=== PATIENT | female | born 1965 ===

== ENCOUNTER 2016-12-20 16:27 | Inpatient (IN) ==
[2016-12-20] MEDS ORDERED: ONDANSETRON 4 MG/2 ML VIAL IV PRN ×2 (16:41→17:56)
[2016-12-20] MEDS ORDERED: ENOXAPARIN 100 MG/ML SYRINGE SUBCUT STA (16:41)
[2016-12-20] MEDS ORDERED: ASPIRIN 325 MG TABLET PO STA (16:41)
[2016-12-20] MEDS ORDERED: NITROGLYCERIN 2% OINT 1 INCH/GM PACK TOP STA (16:41)
[2016-12-20] MEDS ORDERED: NITROGLYCERIN SL 0.4 MG TABLET SL PRN (16:41)
[2016-12-20] MEDS ORDERED: MORPHINE 2 MG/1 ML SYRINGE IV PRN (16:41)
--- NOTE | 2016-12-20 16:44 | EKG Report ---
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
[2016-12-20 16:52] LABS: Basophils % 0.4 % (0.0-0.8); Eosinophils # 0.2 10*3/uL (0.0-0.87); Eosinophils % 1.9 % (0.00-10.9); Hematocrit 35.4 VOL% (35.7-47.0); Hemoglobin 11.8 GM/DL (12.0-16.0); Immature Granulocytes % 0.4 %; Immature Granulocytes Absolute 0.04 #; Lymphocytes # 2.4 10*3/uL (1.4-4.0); Lymphocytes % 22.9 % (21.3-54.2); Mean Corpuscular HGB Conc 33.3 GM/DL (32-36); Mean Corpuscular Hemoglobin 29 PG (27-34); Mean Corpuscular Volume 85.5 FL (87-102); Mean Platelet Volume 10.3 FL (9.6-12.0); Monocytes # 0.5 10*3/uL (0.11-0.8); Monocytes % 4.6 % (1.7-12.7); Neutrophils # 7.2 10*3/uL (1.4-7.4); Neutrophils % 69.8 % (38.7-73.9); Platelet Count 203 T/CUMM (130-400); Red Blood Count 4.14 MC/CUMM (3.8-5.5); Red Cell Distribution Width 13.6 % (9.3-17.3); White Blood Count 10.3 T/CUMM (4-12)
[2016-12-20 17:04] LABS: Partial Thromboplastin Time 27.2 SECS (0-40)
--- NOTE | 2016-12-20 17:07 | Emergency Department Note ---
Lincoln Sharma Emily, am scribing for, and in the presence of, Obie Osuna MD 16:46. Thao Sharma James D, MD, personally performed the services described in this documentation, ascribed by Ines Stark in my presence, and it is both accurate and complete 706 . Arrival - Arrival Chief Complaint: Chest Pain Stated Complaint: chest pain ED Nursing Triage Note: Brought in per EMS from home with c/o left sided chest pain- underneath left breast onset 1400pm. Describes as tightness. +shortness of breath. +nausea. +dizziness. +headache. Mode of Arrival: Stretcher Limitations: No Limitations Source: Patient, RN Notes Reviewed Time Seen by Provider: 12/20/16 16:38 - History of Present Illness HPI Narrative: Pt is a 51 y/o female who came to ED by EMS for further evaluation of chest pain that started today at 2pm when peeling potatoes sitting on the couch. Pt describes the chest pain as tightness and throbbing, which is non radiating under left breast, along with experiencing nausea and chills. Pt has been having MCKAY recently as well but denies arm pain or rash. PMHx of CHF, IDDM, HTN. Pt notes being compliant with daily medications. She was hospitalized back in June 2016, for surgery with abscess/cellulitis on left lower extremity and was also dx then with CHF. Onset (ago): hour(s) Consistency: constant Severity: moderate Severity scale (1-10): 5 Quality: aching (tightness and throbbing) Date of Last Menstrual Period: hyst Allergies/Adverse Reactions: Allergies Allergy/AdvReac Type Severity Reaction Status Date / Time Hyoscyamine AdvReac Intermediate RASH Verified 12/20/16 16:32 Home Medications: Home Medications Medication Instructions Recorded Confirmed Type Aspirin Chew Tab 81 mg PO QAM 09/21/14 12/20/16 History Furosemide Tab [Lasix Tab] 20 mg PO QAM 07/22/15 12/20/16 History Glimepiride 4 mg PO BID 07/22/15 12/20/16 History Insulin Aspart [NovoLOG] 10 unit SUBCUT BID 07/22/15 12/20/16 History Insulin Detemir [Levemir] 15 unit SUBCUT QPM 07/22/15 12/20/16 History Insulin Detemir [Levemir] 55 unit SUBCUT QAM 07/22/15 12/20/16 History Lisinopril 20 mg PO QAM 07/22/15 12/20/16 History Nitroglycerin Sl Tab [Nitrostat] 0.4 mg SL Q5M PRN 07/22/15 12/20/16 History Pravastatin [Pravachol] 40 mg PO BEDTIME 07/22/15 12/20/16 History Esomeprazole Magnesium 40 mg PO QAM 05/31/16 12/20/16 History [Esomeprazole] Albuterol Inhaler [Proventil 2 puff INH Q4H PRN 06/02/16 12/20/16 History Inhaler] Gabapentin [Gabapentin] 600 mg PO TID 12/20/16 12/20/16 History Tramadol HCl [Tramadol Tab] 50 mg PO Q6H PRN 12/20/16 12/20/16 History Review of System - Review of System 12 point system: reviewed and no additional remarkable complaints except as stated - Review of System Constitutional: Present: chills. Absent: fever Respiratory: Absent: cough, respiratory distress Cardiovascular: Present: chest pain (under left breast, non radiating), dyspnea on exertion. Absent: syncope Gastrointestinal: Present: nausea. Absent: abdominal pain, vomiting Musculoskeletal: Absent: arm pain, neck pain Skin: Absent: rash Neurological: Absent: headache Medical,Surgical,& Family Hx - Medical History Cardio: History of: CHF, Hypertension No history of: Aneurysm, Cardiac Dysrhythmia, Cerebrovascular Disease, Congenital Heart Disease, CAD, MS, Pacemaker, PVD, Valvular Heart Disease, Cardiovascular Problems Neurology: History of: Peripheral Neuropathy No history of: Seizures HEENT: History of: Eye Problem (cataract) No history of: Ear Problem Endocrine: History of: Diabetes Mellitus (IDDM), Dyslipidemia Respiratory: History of: Respiratory Problems (sob upon excertion) Renal: History of: Renal Problems Genitourinary: History of: Bladder Problem, Kidney Stones Gastrointestinal: History of: GERD, Polyps Musculoskeletal: History of: Back/Neck Problems No history of: Amputation Hematology: History of: Anemia No history of: Blood Transfusion Reaction Reproductive: No history of: Breast Cancer Other: History of: Anaphylaxis No history of: Anesthesia Reactions - Surgical History Cardiac Surgeries: Sugical HX of: Cardiac Catheterization (heart caths- negative 2010,2011,2016) Neurologic Surgeries: Patient denies: Neurologic Surgery HEENT Surgeries: Surgical HX of: Eye Surgery Patient denies: Tonsilectomy & Adenoidectomy Abdominal Surgeries: Surgical HX of: Abdominal Surgery, Appendectomy, Cholecystectomy, Colonoscopy, EGD, Hernia Repair Reproductive Surgeries: Surgical HX of;: Section (X1), Hysterectomy Orthopedic Surgeries: Patient denies;: Orthopedic Surgery, Total Hip Replacement, Total Knee Replacement - Family History Family History: Reports;: Family Diabetes (parents), Family Heart Disease ( parents, sister, brother), Family Hypertension (parents,brother, sister), Family Stroke (sister, mom) Denies;: Family Anesthesia Reaction - Social History Smoking Status: Former smoker Frequency of Alcohol Use: None Type of Drug Use: None Marital Status: Single Lives With:: Alone Functional capacity: independent ambulation Exam Vital Signs: Vital Signs Temperature 97.4 F L 12/20/16 16:30 Pulse Rate 69 12/20/16 19:00 Respiratory Rate 17 12/20/16 19:00 Blood Pressure 120/67 12/20/16 19:00 O2 Sat by Pulse Oximetry 98 12/20/16 19:00 GENERAL: This is a well-nourished well-developed obese female in no apparent distress. VITAL SIGNS: Reviewed HEENT: Head is atraumatic and normocephalic. Pupils are equal round react to light. Extraocular movements are intact. Oropharynx is benign with moist mucous membranes. NECK: Neck is soft and supple without tenderness. There are no masses. There is no lymphadenopathy. LUNGS: Lungs are clear to auscultation. Chest rises symmetrically. There is no chest wall tenderness. CV: Heart is regular rate and rhythm without murmurs rubs or gallops. ABDOMEN: Abdomen is soft, nontender to palpation. There are no abdominal abnormal masses palpated. There is no organomegaly. Bowel sounds are present and active. SKIN: Skin is warm and dry. No rash. EXTREMITIES: Patient has full range of motion without tenderness. There is trace to 1+ pedal edema. NEUROLOGIC: Awake alert and oriented 4. Cranial nerves II through XII are grossly intact. Motor is 5 over 5 in all extremities bilaterally. Course - Consultations Consultation #1: Discussed with hospitalist. Patient will be admitted to their service. Time: 17:47 Results - Labs CBC & BMP: 12/20/16 16:45 12/20/16 16:45 Lab Results: I have reviewed the patients labs Labs: Laboratory Tests 12/20/16 16:45 WBC 10.3 RBC 4.14 Hgb 11.8 L Hct 35.4 L MCV 85.5 L Plt Count 203 Laboratory Tests 12/20/16 16:45 INR 1.0 PT Patient/Control Mix 10.0 Circ Anticoag PTT 27.2 Laboratory Tests 12/20/16 12/20/16 16:45 16:45 Sodium 141 Potassium 3.6 Chloride 106 Carbon Dioxide 31 Creatinine 0.90 Alkaline Phosphatase 144 H Troponin I 0.033 Albumin 3.2 L Globulin 3.8 H Albumin/Globulin Ratio 0.8 L Laboratory Tests 12/20/16 12/20/16 17:40 17:40 Urine Color Yellow Urine Appearance Clear Urine pH 6.0 Ur Specific [place] 1.004 Urine Protein 30 Urine Blood Small Urine Nitrate Negative Urine Urobilinogen < 2.0 H Urine Leukocytes Small H Urine RBC <1 Urine WBC 9 Ur Squamous Epith Cells Occasional Urine Bacteria Many Urine Opiates Screen Positive H Ur Barbiturates Screen Negative Ur Phencyclidine Scrn Negative U Amphetamine/Methamph Negative U Benzodiazepines Scrn Negative U Cocaine Metab Screen Negative U Cannabinoids Screen Negative Laboratory Tests 12/20/16 16:45 Triglycerides 222 H Cholesterol 165 LDL Cholesterol 92.0 VLDL Cholesterol 44.4 HDL Cholesterol 42 Heart Disease Risk Ratio 3.93 - EKG EKG results: interpreted by ERMD - Impressions EKG: Normal sinus rhythm with a rate of 64, low voltage QRS, nonspecific ST-T wave changes, normal axis. - Diagnostic Findings Procedure: Chest x-ray: image reviewed by me (No infiltrates, no pleural effusions.) Critical Care Time Critical Care Time: No Disposition Clinical Impression: Chest pain, Diabetes mellitus Case discussed with: patient Disposition: Still a Patient Condition: Stable
[2016-12-20] MEDS ORDERED: ENOXAPARIN 120 MG/0.8 ML SYRINGE SUBCUT ONE (17:14)
[2016-12-20] MEDS ORDERED: ASPIRIN 325 MG TABLET ONE (17:15)
--- NOTE | 2016-12-20 17:16 | XRay Report ---
XR chest 1V portable Indication: Chest pain. Comparison: Chest x-ray 06/02/2016 Technique: Portable AP chest was performed. Findings: Study is underpenetrated. Heart size is borderline to minimally enlarged, stable.. Pulmonary vasculature appears within normal limits. No significant abnormality of the mediastinal contours demonstrated. Lungs are clear. Bones and soft tissues demonstrate no significant abnormalities. Impression: 1. No evidence of acute pathology. 12/20/2016 5:13 PM PROCEDURE INTERPRETED AT [facility] DEPARTMENT OF RADIOLOGY Final Report Signed by: Dr. Immanuel Harrell
[2016-12-20] MEDS ORDERED: NITROGLYCERIN 2% OINT 1 INCH/GM PACK TOP ONE (17:20)
[2016-12-20 17:32] LABS: Alanine Aminotransferase 23 U/L (13-56); Albumin 3.2 G/DL (3.4-5.0); Alkaline Phosphatase 144 U/L (45-117); Aspartate Amino Transferase 17 U/L (0-37); Bilirubin,Total < 0.39 MG/DL (0.2-1.0); Blood Urea Nitrogen 18 MG/DL (7-18); Calcium 8.8 MG/DL (8.5-10.1); Glucose 96 MG/DL (74-106); Osmolality,Calculated 282.3 MOS/KG (273-304); Potassium 3.6 MMOL/L (3.5-5.1); Sodium 141 MMOL/L (136-145)
[2016-12-20 17:50] LABS: Apearance,Urine CLEAR (Clear); Bacteria,Urine Many /HPF (Few); Bilirubin,Urine Negative (Negative); Blood, Urine Small mg/dL (Negative); Glucose,Urine (UA) Negative (Negative); Ketones,Urine Negative (Negative); Nitrite,Urine Negative (Negative); Protein,Urine 30 MG/DL; RBC,Urine <1 /HPF (0-4); Squamous Epithelial Cell,Urine Occasional /HPF (0-10); Urine Color Yellow (Yellow); Urine Specific Gravity 1.004 (1.001-1.035); Urine Urobilinogen < 2.0 EU/DL (0.2-1.0); WBC,Urine 9 /HPF (0-6)
[2016-12-20] MEDS ORDERED: INSULIN REGULAR 100 UNIT/ML SUBCUT ONE (17:56)
[2016-12-20] MEDS ORDERED: MAGNESIUM HYDROXIDE SUSP 30 ML UDCUP PO PRN (17:56)
[2016-12-20] MEDS ORDERED: MAGNESIUM SULF RIDER 2 GM in PREMIX 1 EACH IV PRN (17:56)
[2016-12-20] MEDS ORDERED: BISACODYL 5 MG TABLET PO PRN (17:56)
[2016-12-20] MEDS ORDERED: MAGNESIUM SULF RIDER 4 GM in PREMIX 1 EACH IV PRN (17:56)
[2016-12-20 17:58] LABS: Barbiturates Screen,Urine Negative (Negative); Benzodiazepines Screen,Urine Negative (Negative); Cannabinoid Screen,Urine Negative (Negative); Opiate Screen,Urine Positive (Negative); Phencyclidine Screen,Urine Negative (Negative)
[2016-12-20] MEDS ORDERED: ALBUTEROL 2.5 MG/3 ML NEB RESP TX PRN (18:01)
[2016-12-20 18:29] LABS: Risk Ratio 3.93; VLDL CHOLESTEROL 44.4 MG/DL
--- NOTE | 2016-12-20 18:46 | Hospitalist History & Physical ---
Assessment and Plan (1) Chest pain Status: Acute Assessment and plan: Troponin was noted at 0.033. The patient certainly has multiple comorbidities contributing to cardiovascular disease. Due to the existence of these comorbidities, we will conduct a full cardiac workup. We will obtain serial troponins if positive we will consult cardiology. Current Visit: Yes (2) Diabetes mellitus Status: Acute Assessment and plan: We will obtain hemoglobin A1c and start Accu-Cheks with sliding scale coverage for Current Visit: Yes History of Present Illness Chief complaint: Chest pain History of present illness: This is a chronically ill 51-year-old female that presented to the ED at [facility] for the further evaluation of chest pain. The patient has a medical history significant for congestive heart failure, insulin-dependent diabetes mellitus, hypertension, dyslipidemia, peripheral neuropathy, cataracts, renal calculi, gastro-esophageal reflux disease, chronic neck and back pain, anemia, colon polyps. Patient surgical history significant for cardiac catheterizations, cataract removal, appendectomy , cholecystectomy, colonoscopy, EGD, hernia repair, section, hysterectomy, and total hip replacement, total knee replacement. The patient reported the onset of the above symptoms around 2:00 today. The patient reported that she was peeling potatoes when the pain started. The patient described the pain as chest tightness and throbbing which radiated along her left breast. In addition, the patient reported experiencing nausea and chills. She reported that in recent days she became very short of breath on minimal exertion. She became alarmed when the pain became severe and subsequently called EMS for transport to the ED for further evaluation. The patient was seen and assessed at the time of ED presentation. Aspirin 325 mg and nitroglycerin sublingually was given and the patient's pain eventually became less severe. Labs were obtained which were remarkable for hemoglobin at 11.8, hematocrit 35.4, INR 1.0, PT 10.0, PTT 27.2, sodium 141, potassium 3.6, chloride 106, BUN 18, creatinine 0.90, glucose 96, alkaline phosphatase 144, troponin 0 0.33, triglycerides 222, cholesterol 165, LDL cholesterol 92.2, VLDL cholesterol 44.4, and HDL cholesterol 42. Urinalysis was essentially remarkable for urobilinogen greater than 2.0, small amount of leukocytes, urine white blood cell counts were noted at 9, urine squamous epithelial cells were occasional with many urine bacteria noted. Urine toxicology was positive for opiates. Chest x-ray was negative for any acute cardiopulmonary processes. After brief discussion with both Dr. Osuna and Dr. Davidson, the patient will be admitted to the hospitalist service for continuation of care. The patient's home medications have been reviewed and reconciled. CODE STATUS discussed; patient is a FULL CODE. Home Medications Medication Instructions Recorded Confirmed Type Aspirin Chew Tab 81 mg PO QAM 09/21/14 12/20/16 History Furosemide Tab [Lasix Tab] 20 mg PO QAM 07/22/15 12/20/16 History Glimepiride 4 mg PO BID 07/22/15 12/20/16 History Insulin Aspart [NovoLOG] 10 unit SUBCUT BID 07/22/15 12/20/16 History Insulin Detemir [Levemir] 15 unit SUBCUT QPM 07/22/15 12/20/16 History Insulin Detemir [Levemir] 55 unit SUBCUT QAM 07/22/15 12/20/16 History Lisinopril 20 mg PO QAM 07/22/15 12/20/16 History Nitroglycerin Sl Tab [Nitrostat] 0.4 mg SL Q5M PRN 07/22/15 12/20/16 History Pravastatin [Pravachol] 40 mg PO BEDTIME 07/22/15 12/20/16 History Esomeprazole Magnesium 40 mg PO QAM 05/31/16 12/20/16 History [Esomeprazole] Albuterol Inhaler [Proventil 2 puff INH Q4H PRN 06/02/16 12/20/16 History Inhaler] Gabapentin [Gabapentin] 600 mg PO TID 12/20/16 12/20/16 History Tramadol HCl [Tramadol Tab] 50 mg PO Q6H PRN 12/20/16 12/20/16 History Allergies Allergy/AdvReac Type Severity Reaction Status Date / Time Hyoscyamine AdvReac Intermediate RASH Verified 12/20/16 16:32 Medical,Surgical,& Family Hx - Medical History Cardio: History of: CHF, Hypertension No history of: Aneurysm, Cardiac Dysrhythmia, Cerebrovascular Disease, Congenital Heart Disease, CAD, PR, Pacemaker, PVD, Valvular Heart Disease, Cardiovascular Problems Neurology: History of: Peripheral Neuropathy No history of: Seizures HEENT: History of: Eye Problem (cataract) No history of: Ear Problem Endocrine: History of: Diabetes Mellitus (IDDM), Dyslipidemia Respiratory: History of: Respiratory Problems (sob upon excertion) Renal: History of: Renal Problems Genitourinary: History of: Bladder Problem, Kidney Stones Gastrointestinal: History of: GERD, Polyps Musculoskeletal: History of: Back/Neck Problems No history of: Amputation Hematology: History of: Anemia No history of: Blood Transfusion Reaction Reproductive: No history of: Breast Cancer Other: History of: Anaphylaxis No history of: Anesthesia Reactions - Surgical History Cardiac Surgeries: Sugical HX of: Cardiac Catheterization (heart caths- negative 2010,2011,2015) Neurologic Surgeries: Patient denies: Neurologic Surgery HEENT Surgeries: Surgical HX of: Eye Surgery Patient denies: Tonsilectomy & Adenoidectomy Abdominal Surgeries: Surgical HX of: Abdominal Surgery, Appendectomy, Cholecystectomy, Colonoscopy, EGD, Hernia Repair Reproductive Surgeries: Surgical HX of;: Section (X1), Hysterectomy Orthopedic Surgeries: Patient denies;: Orthopedic Surgery, Total Hip Replacement, Total Knee Replacement - Family History Family History: Reports;: Family Diabetes (parents), Family Heart Disease ( parents, sister, brother), Family Hypertension (parents,brother, sister), Family Stroke (sister, mom) Denies;: Family Anesthesia Reaction - Social History Smoking Status: Former smoker Frequency of Alcohol Use: None Type of Drug Use: None Exam - Constitutional Vitals: Period Temp Pulse Resp BP Sys/Montez Pulse Ox Last 24 Hr 97.4 F 70 20 140/81 96 General appearance: morbidly obese - Head Head exam: Present: normal inspection, normocephalic, atraumatic - Eye Eye exam: Present: EOMI. Absent: conjunctival injection Pupils: Present: DEMETRIUS, normal accommodation - ENT ENT exam: Present: normal exam, normal external ear exam, normal oropharynx - Neck Neck exam: Present: normal inspection. Absent: lymphadenopathy, meningismus, thyromegaly - Respiratory Respiratory exam: Present: clear to auscultation bilaterally. Absent: rales, rhonchi, stridor, wheezes - Cardiovascular Cardiovascular exam: Present: regular rate and rhythm. Absent: carotid bruit, diastolic murmur, gallop, JVD, rubs, systolic murmur - GI/Abdominal GI/Abdominal exam: Present: normal bowel sounds, soft - Extremities Exam Extremities exam: Present: normal inspection, normal capillary refill, full ROM. Absent: edema - Back Exam Back exam: Present: normal inspection - Neurological Exam Neurological exam: Present: alert, oriented X3, CN II-XII intact - Psychiatric Psychiatric exam: Present: normal affect, normal mood - Skin Skin exam: Present: normal color, warm, dry Results - Labs CBC & BMP: 12/20/16 16:45 12/20/16 16:45 Lab Results: I have reviewed the past 24 hour labs
[2016-12-20] MEDS: GABAPENTIN 600 MG TABLET PO SCH (21:23)
[2016-12-20] MEDS: INSULIN GLARGINE 100 UNIT/ML SUBCUT SCH (21:24)
[2016-12-20] MEDS: PRAVASTATIN 40 MG TABLET PO SCH (21:24)
[2016-12-20] MEDS: CARVEDILOL 6.25 MG TABLET PO SCH (21:24)
[2016-12-20] MEDS: FAMOTIDINE 20 MG TABLET PO SCH (21:24)
[2016-12-20] MEDS: INSULIN REGULAR 100 UNIT/ML SUBCUT SCH (22:31)
[2016-12-21 05:31] LABS: Basophils # 0.1 10*3/uL (0.0-0.2); Basophils % 0.5 % (0.0-0.8); Eosinophils # 0.2 10*3/uL (0.0-0.87); Eosinophils % 2.6 % (0.00-10.9); Hematocrit 33.6 VOL% (35.7-47.0); Hemoglobin 11.1 GM/DL (12.0-16.0); Immature Granulocytes % 0.3 %; Immature Granulocytes Absolute 0.03 #; Lymphocytes # 3.2 10*3/uL (1.4-4.0); Mean Corpuscular Hemoglobin 29 PG (27-34); Mean Corpuscular Volume 86.4 FL (87-102); Mean Platelet Volume 10.8 FL (9.6-12.0); Monocytes # 0.5 10*3/uL (0.11-0.8); Monocytes % 4.8 % (1.7-12.7); Neutrophils # 5.4 10*3/uL (1.4-7.4); Neutrophils % 57.8 % (38.7-73.9); Platelet Count 219 T/CUMM (130-400); Red Blood Count 3.89 MC/CUMM (3.8-5.5); White Blood Count 9.4 T/CUMM (4-12)
[2016-12-21 06:09] LABS: Bilirubin,Total 0.6 MG/DL (0.2-1.0); Calcium 8.5 MG/DL (8.5-10.1); Magnesium 2.3 MG/DL (1.8-2.4); Osmolality,Calculated 282.3 MOS/KG (273-304); Potassium 3.8 MMOL/L (3.5-5.1); Total Protein 6.4 G/DL (6.4-8.3)
--- NOTE | 2016-12-21 06:13 | EKG Report ---
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
--- NOTE | 2016-12-21 07:55 | EKG Report ---
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
--- NOTE | 2016-12-21 07:56 | EKG Report ---
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
--- NOTE | 2016-12-21 08:06 | XRay Report ---
Portable chest Date: 12/21/2016 Clinical history: Chest pain Comparison: 12/20/2016 Technique: Portable AP sitting chest Findings: The heart is borderline in size. Minimal relative elevation of the right hemidiaphragm with no significant change in the appearance of the lungs, mediastinum, or osseous structures. Impression: No acute cardiopulmonary pathology identified. PROCEDURE INTERPRETED AT [facility] DEPARTMENT OF RADIOLOGY Final Report Signed by: Dr. Guillermina Kahn
[2016-12-21] MEDS: INSULIN REGULAR 100 UNIT/ML SUBCUT SCH ×4 (08:53→21:33)
[2016-12-21] MEDS ORDERED: FUROSEMIDE 20 MG TABLET PO SCH (09:00)
[2016-12-21] MEDS: NITROGLYCERIN SL 0.4 MG TABLET SL PRN ×4 (09:04→09:21)
[2016-12-21] MEDS: ACETAMINOPHEN 325 MG TABLET PO PRN (09:18)
[2016-12-21] MEDS: ENOXAPARIN 40 MG/0.4 ML SYRINGE SUBCUT SCH (09:22)
[2016-12-21] MEDS: GABAPENTIN 600 MG TABLET PO SCH ×3 (09:23→21:32)
[2016-12-21] MEDS: ASPIRIN EC 81 MG TABLET PO SCH (09:23)
[2016-12-21] MEDS: LISINOPRIL 20 MG TABLET PO SCH (09:23)
[2016-12-21] MEDS: INSULIN GLARGINE 100 UNIT/ML SUBCUT SCH ×2 (09:24→21:33)
[2016-12-21] MEDS: FAMOTIDINE 20 MG TABLET PO SCH (09:24)
[2016-12-21] MEDS: CARVEDILOL 6.25 MG TABLET PO SCH ×2 (09:24→21:33)
[2016-12-21] MEDS: traMADol 50 MG TABLET PO PRN (11:28)
--- NOTE | 2016-12-21 13:01 | Hospitalist Progress Note ---
Assessment and Plan (1) Epigastric pain Status: Acute Assessment and plan: 1)atypical chest pain- she has a history of CHF, HTN, DM, and cardiac cath. No report of prior echo results. Troponins nondiagnostic. On asa. cardiology to see. EKG with nferior Twave inversion. 2)epigastric pain- on PPI. consult Dr Pinto. lipase ordered also. consider gastroparesis. 3)DM- use lantus and SSI for now. holding her other insulins and orals. 4)HTN- controlled. 5)UTI- GNR in urine. begin ceftriaxone. await culture results. Current Visit: Yes (2) Atypical chest pain Status: Acute Current Visit: No (3) Obesity Status: Chronic Current Visit: No (4) Diabetes mellitus Status: Acute Current Visit: Yes Hospitalist: Subjective Interval history: Mrs Mcwilliams complains of persistent epigastric pain that radiates to her left chest under her breast. It does not wax or wane. It does not go anywhere else. It has been bothering her for "awhile" but was worse yesterday. She has seen Dr Pinto in the past and is treated with PPI, but tells me she has no history of ulcer disease. In fact she saw him in his clinic 2 days ago with the same pain. Lipase pending. Other labs stable. Troponins up a little bit, but stable. She had nitro this morning for her pain but it did not help. Exam - Constitutional Vitals: Period Temp Pulse Resp BP Sys/Montez Pulse Ox Last 24 Hr 97 F-98.1 F 64-73 14-20 101-140/59-83 93-100 General appearance: no acute distress, morbidly obese - Head Head exam: Present: normocephalic, atraumatic - Eye Eye exam: Present: EOMI. Absent: scleral icterus - Respiratory Respiratory exam: Present: clear to auscultation bilaterally - Cardiovascular Cardiovascular exam: Present: regular rate and rhythm, other (chest wall not tender) - GI/Abdominal GI/Abdominal exam: Present: normal bowel sounds, tenderness (epigastrium. no rebound or guarding. no masses), soft - Extremities Exam Extremities exam: Absent: edema Results - Labs CBC & BMP: 12/21/16 04:31 12/21/16 04:31
--- NOTE | 2016-12-21 13:41 | Event Note ---
This is an event note in lieu of consultation for Varsha Mcwilliams in response to Dr. Moncada's request. She notes the patient has abdominal pain and I have to state that this patient was just seen in the office 2 days ago for the exact same problem and has an extensive GI history which includes both upper and lower endoscopy barium swallow gastric emptying study as well as multiple visits., Please see scanned in GI progress note from 12/19/16. She has issues with dysphasia which has not been improved with dilation to 54 [place] by Sean lriaator and issues with gastroparesis previously diagnosed but unable to benefit from Reglan due to tardive dyskinesia side effects and unwilling to try erythromycin due to proarrhythmia effects. She is currently being seen on telemetry and I am not sure that he would want to start erythromycin given her current cardiac condition. She has tried Protonix as well as Nexium and was even offered Protonix twice daily recently. She has issues with compliance. She has recently been given tramadol as well for her pain and I suspect she has an underlying esophageal dysmotility which we have attempted to treat with Levsin in the past, unsuccessfully. She might benefit from a calcium channel aneta, theoretically. At this point there is little else to do for this patient, might suggest use of Protonix twice daily and if you feel a potential benefit versus cost that is favorable you might consider erythromycin as well although I doubt that she would accept this given the proarrhythmia effects it can induce. We will be happy to follow this admission but as I mentioned there is little else to offer her. You may want to get a second GI opinion. Follow- up with me in the clinic if desired, please let me know if you want me to continue following her this admission.
[2016-12-21] MEDS: SODIUM CHLORIDE 0.9% 1,000 ML IV SCH (15:11)
[2016-12-21] MEDS: cefTRIAXone 1,000 MG in SODIUM CHLORIDE 0.9% 100 ML IV SCH (15:11)
--- NOTE | 2016-12-21 15:48 | Cardiology Consult Note ---
Assessment and Plan - Time spent with patient Time spent with patient: Greater than 30 minutes (due to assessment, plan, and documentation) (1) Chest pain Status: Acute Assessment and plan: See plan of care listed below. Current Visit: Yes (2) Hypertension Status: Chronic Assessment and plan: See plan of care listed below. Current Visit: Yes (3) Dyslipidemia Status: Chronic Assessment and plan: See plan of care listed below. Current Visit: Yes (4) Diabetes mellitus Status: Chronic Assessment and plan: See plan of care listed below. Current Visit: Yes (5) GERD (gastroesophageal reflux disease) Status: Chronic Assessment and plan: See plan of care listed below. Current Visit: Yes (6) UTI (urinary tract infection) Status: Acute Assessment and plan: See plan of care listed below. Current Visit: Yes (7) Wound of lower extremity Status: Acute Assessment and plan: See plan of care listed below. Current Visit: Yes Qualifiers: Laterality: left (8) Obesity Status: Chronic Assessment and plan: See plan of care listed below. 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 Marroquin PCP: [facility] Ms. Mcwilliams is a 51 year old female who was brought to our facility by EMS for further evaluation of chest pain. She has a history of hypertension, diabetes, hyperlipidemia, gastroesophageal reflux disease, and chest pain. She has been followed by Dr. Marroquin for several years and has had chest pain symptoms that have been worked up with noninvasive and subsequent cardiac catheterizations. She has had 3 cardiac catheterizations through the years, the most recent being July 2015, which have shown normal coronary arteries. She has also had preserved left ventricular systolic function per prior testing. She also reports a history of an aneurysm which is followed by [facility] and a provider in [place]. Ms. Mcwilliams reports that she was in her usual state of health yesterday afternoon and was peeling potatoes for supper when she developed a substernal/ epigastric pain that radiated to beneath her left breast. She reports it felt like a throbbing, squeezing sensation and would not go away. She had associated shortness of breath and nausea. She reports that she took a nitroglycerin with no relief and subsequently called EMS for transport. She denies any recent exertional chest pain and reports her pain is worse with breathing and movement. It is also reproducible with palpation. She has an extensive GI history and is followed by Dr. Pinto. She was just seen in his clinic 2 days ago for the similar symptoms. Upon arrival to our facility, she was noted to have an elevated ALP, normal lipase, normal cardiac biomarkers, creatinine 1.1. H&H is stable at 11.1 and 33.6. Urinalysis revealed UTI. She has been started on IV antibiotics. ASSESSMENT/PLAN: 1. CHEST PAIN - Atypical in nature. She has had 5 sets of normal cardiac biomarkers. EKG shows sinus rhythm with T-wave inversions most prominent in the inferior leads. She has had negative catheterizations in the past. We will recheck an echocardiogram. 2. HYPERTENSION - Currently well controlled. Will continue to monitor and adjust accordingly. 3. HYPERLIPIDEMIA - Continue lipid lowering agent. Lipid panel revealed triglycerides 222, cholesterol 165, LDL 92, HDL 42. 4. DIABETES - Continue accuchecks and sliding scale insulin. 5. GERD - GI is following. Continue PPI. 6. UTI - Hospital medicine following. Awaiting culture results. She has been started on IV antibiotics. 7. LOWER EXTREMITY WOUND - Will consult wound care. Patient states she has had cellulitis in [facility] since June. 8. OBESITY - Chronic. Encouraged lifestyle modification with diet and exercise. CC: Shannon Moncada MD - Home Medications and Allergies Home Medications: Home Medications Medication Instructions Recorded Confirmed Type Aspirin Chew Tab 81 mg PO QAM 09/21/14 12/20/16 History Furosemide Tab [Lasix Tab] 20 mg PO QAM 07/22/15 12/20/16 History Glimepiride 4 mg PO BID 07/22/15 12/20/16 History Insulin Aspart [NovoLOG] 10 unit SUBCUT BID 07/22/15 12/20/16 History Insulin Detemir [Levemir] 15 unit SUBCUT QPM 07/22/15 12/20/16 History Insulin Detemir [Levemir] 55 unit SUBCUT QAM 07/22/15 12/20/16 History Lisinopril 20 mg PO QAM 07/22/15 12/20/16 History Nitroglycerin Sl Tab [Nitrostat] 0.4 mg SL Q5M PRN 07/22/15 12/20/16 History Pravastatin [Pravachol] 40 mg PO BEDTIME 07/22/15 12/20/16 History Esomeprazole Magnesium 40 mg PO QAM 05/31/16 12/20/16 History [Esomeprazole] Albuterol Inhaler [Proventil 2 puff INH Q4H PRN 06/02/16 12/20/16 History Inhaler] Gabapentin [Gabapentin] 600 mg PO TID 12/20/16 12/20/16 History Tramadol HCl [Tramadol Tab] 50 mg PO Q6H PRN 12/20/16 12/20/16 History Allergies/Adverse Reactions: Allergies Allergy/AdvReac Type Severity Reaction Status Date / Time Hyoscyamine AdvReac Intermediate RASH Verified 12/20/16 16:32 Review of systems: - Constitutional: Present:fatigue, As per HPI. Absent: anorexia, chills, daytime sleepiness, excessive sweating, fever(s), frequent falls, headache(s), increased appetite, lethargy, malaise, night sweats, stops breathing during sleep, weakness, weight gain, weight loss. - EENT Eyes: Present: As per HPI. Absent: blurry vision, diplopia, loss of vision Ears: Present: As per HPI. Absent: decreased hearing, ear discharge, ear pain Nose, mouth and throat: Present: dysphagia, As per HPI. Absent: epistaxis, headache(s), hoarseness, lip swelling, nasal congestion, neck mass, neck pain, sinus pressure, sore throat, throat swelling, tongue swelling, vertigo - Cardiovascular: Present:chest pain at rest, dyspnea, diaphoresis, as per HPI. Absent: chest pain with activity, edema, claudication, radiating jaw, neck or arm pain, lightheadedness, orthopnea, palpitations, PND - Respiratory: Present:dyspnea, as per HPI. Absent: dyspnea on exertion, cough , hemoptysis, wheezing, snoring, pain on inspiration - Gastrointestinal: Present: abdominal/epigastric pain, nausea, As per HPI. Absent: bloating, change in bowel habits, constipation, diarrhea, heartburn, hematemesis, hematochezia, loose stools, melena, vomiting - Genitourinary: Present: As per HPI. Absent: difficulty urinating, dysuria, flank pain, hematuria, nocturia, urinary frequency, urinary incontinence - Musculoskeletal: Present: As per HPI. Absent: arthralgias, back pain, joint swelling, limited range of motion, muscle cramps, muscle weakness, myalgias - Neurological: Present: dizziness, As per HPI. Absent: abnormal gait, abnormal speech, behavioral changes, confusion, convulsions, disequilibrium, focal weakness, frequent falls, headache(s), memory loss, numbness, paresthesias, radicular pain, syncope, tremor(s) - Psychiatric: Present: As per HPI. Absent: anxiety, confusion, depression, panic attacks - Endocrine: Present: fatigue, As per HPI. Absent: cold intolerance, heat intolerance, polydipsia, polyphagia - Hematologic/Lymphatic: Present: As per HPI. Absent: easy bleeding, easy bruising, lymphadenopathy Medical,Surgical,& Family Hx - Medical History Cardio: History of: Hypertension No history of: Aneurysm, Cardiac Dysrhythmia, Cerebrovascular Disease, Congenital Heart Disease, CAD, NM, Pacemaker, PVD, Valvular Heart Disease, Cardiovascular Problems Neurology: History of: Peripheral Neuropathy No history of: Brain Aneurysm, Cerebral Hemorrhage, Cerebrovascular Accident , Cerebral Palsy, Dementia, Migraine, Multiple Sclerosis, Parkinson's Disease, Seizures, TIA, Vertigo, Neurologocal Cancer HEENT: History of: Eye Problem (cataract) No history of: Ear Problem Endocrine: History of: Diabetes Mellitus (IDDM), Dyslipidemia Respiratory: History of: Respiratory Problems (sob upon excertion) Renal: History of: Renal Problems Genitourinary: History of: Bladder Problem, Kidney Stones Gastrointestinal: History of: GERD, Polyps Musculoskeletal: History of: Back/Neck Problems No history of: Amputation Hematology: History of: Anemia No history of: Blood Transfusion Reaction Reproductive: No history of: Breast Cancer Other: History of: Anaphylaxis No history of: Anesthesia Reactions - Surgical History Cardiac Surgeries: Sugical HX of: Cardiac Catheterization (heart caths- negative 2010,2011,2015) Neurologic Surgeries: Patient denies: Brain Aneurysm, Cerebral Hemorrhage, Neurologic Surgery HEENT Surgeries: Surgical HX of: Eye Surgery Patient denies: Tonsilectomy & Adenoidectomy Abdominal Surgeries: Surgical HX of: Abdominal Surgery, Appendectomy, Cholecystectomy, Colonoscopy, EGD, Hernia Repair Reproductive Surgeries: Surgical HX of;: Section (X1), Hysterectomy Orthopedic Surgeries: Patient denies;: Orthopedic Surgery, Total Hip Replacement, Total Knee Replacement - Family History Family History: Reports;: Family Diabetes (parents), Family Heart Disease ( parents, sister, brother), Family Hypertension (parents,brother, sister), Family Stroke (sister, mom) Denies;: Family Anesthesia Reaction - Social History Smoking Status: Never smoker Frequency of Alcohol Use: None Type of Drug Use: None Physical Examination Vital Signs Temp Pulse Resp BP Pulse Ox 97.4 F L 70 20 140/81 96 12/20/16 16:27 12/20/16 16:27 12/20/16 16:27 12/20/16 16:27 12/20/16 16:27 Exam: General appearance: Pleasant and cooperative. Overweight, no acute distress. Head exam: Present: normal inspection, normocephalic, atraumatic. Absent: hematoma, laceration Eye exam: Present: EOMI. Absent: conjunctival injection, nystagmus, periorbital swelling, scleral icterus, laceration to eyelids Pupils: Present: PERRL. Absent: constricted, dilated, fixed, irregular, unequal ENT exam: Present: normal exam, normal external ear exam Neck exam: Present: normal inspection. Absent: lymphadenopathy, meningismus, tenderness, thyromegaly, carotid bruit Respiratory exam: Present: clear to auscultation bilaterally. Absent: accessory muscle use, chest wall tenderness, rales, rhonchi, wheezing. Cardiovascular exam: Present: regular rate and rhythm. Systolic murmur, best appreciated at LUSB. Absent: gallop, JVD, rubs GI/Abdominal exam: Present: normal bowel sounds, soft. Absent: distended, firm , guarding, hernia, mass, tenderness, rebound. Extremities exam: Present: normal inspection, normal capillary refill. Upper extremity pulses 2+. Lower extremity pulses 2+. Mild BLE edema. Cellulitis to LLE with open wound approximately 1/2" in width by 3" in length. Absent: calf tenderness Musculoskeletal: Present: No Fluid Collection, No Pain, Normal Range of Motion Back exam: Present: normal inspection. Absent: muscle spasm, vertebral tenderness Neurological exam: Present: alert, oriented X3, grossly intact without resting or essential tremor Psychiatric exam: Present: normal affect, normal mood Skin exam: Present: normal color, warm, dry, intact. Absent: cyanosis, diaphoretic, rash, urticaria Result/EKG - Labs CBC & BMP: 12/21/16 04:31 12/21/16 04:31 Lab Results: I have reviewed the past 24 hour labs Labs: Laboratory Results - last 24 hr 12/20/16 12/20/16 12/20/16 16:45 16:45 16:45 WBC 10.3 RBC 4.14 Hgb 11.8 L Hct 35.4 L MCV 85.5 L MCH 29 MCHC 33.3 RDW 13.6 Plt Count 203 MPV 10.3 Neut % (Auto) 69.8 Lymph % (Auto) 22.9 [place] % (Auto) 4.6 Eos % (Auto) 1.9 Baso % (Auto) 0.4 Neut # (Auto) 7.2 Lymph # (Auto) 2.4 [place] # (Auto) 0.5 Eos # (Auto) 0.2 Baso # (Auto) 0.0 Immature Gran % 0.4 Nucleated RBC % 0.0 Immature Gran # 0.04 Nucleated RBCs # 0.00 Immature Plt Fraction 0.0 INR 1.0 PT Patient/Control Mix 10.0 Circ Anticoag PTT 27.2 Sodium 141 Potassium 3.6 Chloride 106 Carbon Dioxide 31 Anion Gap 7.6 BUN 18 Creatinine 0.90 GFR Calculation 89 BUN/Creatinine Ratio 20.00 Glucose 96 POC Glucose Calculated Osmolality 282.3 Calcium 8.8 Magnesium Total Bilirubin < 0.39 AST 17 ALT 23 Alkaline Phosphatase 144 H Troponin I Total Protein 7.0 Albumin 3.2 L Globulin 3.8 H Albumin/Globulin Ratio 0.8 L Triglycerides Cholesterol LDL Cholesterol VLDL Cholesterol HDL Cholesterol Heart Disease Risk Ratio Lipase Urine Color Urine Appearance Urine pH Ur Specific [place] Urine Protein Urine Glucose (UA) Urine Ketones Urine Blood Urine Nitrate Urine Bilirubin Urine Urobilinogen Urine Leukocytes Urine RBC Urine WBC Ur Squamous Epith Cells Urine Bacteria Ur Culture Indicated? Urine Opiates Screen Ur Barbiturates Screen Ur Phencyclidine Scrn U Amphetamine/Methamph U Benzodiazepines Scrn U Cocaine Metab Screen U Cannabinoids Screen 12/20/16 12/20/16 12/20/16 16:45 16:45 17:40 WBC RBC Hgb Hct MCV MCH MCHC RDW Plt Count MPV Neut % (Auto) Lymph % (Auto) [place] % (Auto) Eos % (Auto) Baso % (Auto) Neut # (Auto) Lymph # (Auto) [place] # (Auto) Eos # (Auto) Baso # (Auto) Immature Gran % Nucleated RBC % Immature Gran # Nucleated RBCs # Immature Plt Fraction INR PT Patient/Control Mix Circ Anticoag PTT Sodium Potassium Chloride Carbon Dioxide Anion Gap BUN Creatinine GFR Calculation BUN/Creatinine Ratio Glucose POC Glucose Calculated Osmolality Calcium Magnesium Total Bilirubin AST ALT Alkaline Phosphatase Troponin I 0.033 Total Protein Albumin Globulin Albumin/Globulin Ratio Triglycerides 222 H Cholesterol 165 LDL Cholesterol 92.0 VLDL Cholesterol 44.4 HDL Cholesterol 42 Heart Disease Risk Ratio 3.93 Lipase Urine Color Yellow Urine Appearance Clear Urine pH 6.0 Ur Specific [place] 1.004 Urine Protein 30 Urine Glucose (UA) Negative Urine Ketones Negative Urine Blood Small Urine Nitrate Negative Urine Bilirubin Negative Urine Urobilinogen < 2.0 H Urine Leukocytes Small H Urine RBC <1 Urine WBC 9 Ur Squamous Epith Cells Occasional Urine Bacteria Many Ur Culture Indicated? Results to follow Urine Opiates Screen Ur Barbiturates Screen Ur Phencyclidine Scrn U Amphetamine/Methamph U Benzodiazepines Scrn U Cocaine Metab Screen U Cannabinoids Screen 12/20/16 12/20/16 12/20/16 17:40 19:30 20:24 WBC RBC Hgb Hct MCV MCH MCHC RDW Plt Count MPV Neut % (Auto) Lymph % (Auto) [place] % (Auto) Eos % (Auto) Baso % (Auto) Neut # (Auto) Lymph # (Auto) [place] # (Auto) Eos # (Auto) Baso # (Auto) Immature Gran % Nucleated RBC % Immature Gran # Nucleated RBCs # Immature Plt Fraction INR PT Patient/Control Mix Circ Anticoag PTT Sodium Potassium Chloride Carbon Dioxide Anion Gap BUN Creatinine GFR Calculation BUN/Creatinine Ratio Glucose POC Glucose 117 H Calculated Osmolality Calcium Magnesium Total Bilirubin AST ALT Alkaline Phosphatase Troponin I 0.030 Total Protein Albumin Globulin Albumin/Globulin Ratio Triglycerides Cholesterol LDL Cholesterol VLDL Cholesterol HDL Cholesterol Heart Disease Risk Ratio Lipase Urine Color Urine Appearance Urine pH Ur Specific [place] Urine Protein Urine Glucose (UA) Urine Ketones Urine Blood Urine Nitrate Urine Bilirubin Urine Urobilinogen Urine Leukocytes Urine RBC Urine WBC Ur Squamous Epith Cells Urine Bacteria Ur Culture Indicated? Urine Opiates Screen Positive H Ur Barbiturates Screen Negative Ur Phencyclidine Scrn Negative U Amphetamine/Methamph Negative U Benzodiazepines Scrn Negative U Cocaine Metab Screen Negative U Cannabinoids Screen Negative 12/20/16 12/20/16 12/21/16 23:40 23:40 04:31 WBC RBC Hgb Hct MCV MCH MCHC RDW Plt Count MPV Neut % (Auto) Lymph % (Auto) [place] % (Auto) Eos % (Auto) Baso % (Auto) Neut # (Auto) Lymph # (Auto) [place] # (Auto) Eos # (Auto) Baso # (Auto) Immature Gran % Nucleated RBC % Immature Gran # Nucleated RBCs # Immature Plt Fraction INR PT Patient/Control Mix Circ Anticoag PTT Sodium Potassium Chloride Carbon Dioxide Anion Gap BUN Creatinine GFR Calculation BUN/Creatinine Ratio Glucose POC Glucose Calculated Osmolality Calcium Magnesium Total Bilirubin AST ALT Alkaline Phosphatase Troponin I 0.028 0.031 0.027 Total Protein Albumin Globulin Albumin/Globulin Ratio Triglycerides Cholesterol LDL Cholesterol VLDL Cholesterol HDL Cholesterol Heart Disease Risk Ratio Lipase Urine Color Urine Appearance Urine pH Ur Specific [place] Urine Protein Urine Glucose (UA) Urine Ketones Urine Blood Urine Nitrate Urine Bilirubin Urine Urobilinogen Urine Leukocytes Urine RBC Urine WBC Ur Squamous Epith Cells Urine Bacteria Ur Culture Indicated? Urine Opiates Screen Ur Barbiturates Screen Ur Phencyclidine Scrn U Amphetamine/Methamph U Benzodiazepines Scrn U Cocaine Metab Screen U Cannabinoids Screen 12/21/16 12/21/16 12/21/16 04:31 04:31 04:31 WBC 9.4 RBC 3.89 Hgb 11.1 L Hct 33.6 L MCV 86.4 L MCH 29 MCHC 33.0 RDW 14.0 Plt Count 219 MPV 10.8 Neut % (Auto) 57.8 Lymph % (Auto) 34.0 [place] % (Auto) 4.8 Eos % (Auto) 2.6 Baso % (Auto) 0.5 Neut # (Auto) 5.4 Lymph # (Auto) 3.2 [place] # (Auto) 0.5 Eos # (Auto) 0.2 Baso # (Auto) 0.1 Immature Gran % 0.3 Nucleated RBC % 0.0 Immature Gran # 0.03 Nucleated RBCs # 0.00 Immature Plt Fraction 0.0 INR PT Patient/Control Mix Circ Anticoag PTT Sodium 141 Potassium 3.8 Chloride 106 Carbon Dioxide 29 Anion Gap 9.8 BUN 22 H Creatinine 1.10 H GFR Calculation 71 BUN/Creatinine Ratio 20.00 Glucose 89 POC Glucose Calculated Osmolality 282.3 Calcium 8.5 Magnesium 2.3 Total Bilirubin 0.60 AST 20 ALT 22 Alkaline Phosphatase 138 H Troponin I Total Protein 6.4 Albumin 3.0 L Globulin 3.4 Albumin/Globulin Ratio 0.8 L Triglycerides Cholesterol LDL Cholesterol VLDL Cholesterol HDL Cholesterol Heart Disease Risk Ratio Lipase 125.0 Urine Color Urine Appearance Urine pH Ur Specific [place] Urine Protein Urine Glucose (UA) Urine Ketones Urine Blood Urine Nitrate Urine Bilirubin Urine Urobilinogen Urine Leukocytes Urine RBC Urine WBC Ur Squamous Epith Cells Urine Bacteria Ur Culture Indicated? Urine Opiates Screen Ur Barbiturates Screen Ur Phencyclidine Scrn U Amphetamine/Methamph U Benzodiazepines Scrn U Cocaine Metab Screen U Cannabinoids Screen 12/21/16 12/21/16 08:07 11:51 WBC RBC Hgb Hct MCV MCH MCHC RDW Plt Count MPV Neut % (Auto) Lymph % (Auto) [place] % (Auto) Eos % (Auto) Baso % (Auto) Neut # (Auto) Lymph # (Auto) [place] # (Auto) Eos # (Auto) Baso # (Auto) Immature Gran % Nucleated RBC % Immature Gran # Nucleated RBCs # Immature Plt Fraction INR PT Patient/Control Mix Circ Anticoag PTT Sodium Potassium Chloride Carbon Dioxide Anion Gap BUN Creatinine GFR Calculation BUN/Creatinine Ratio Glucose POC Glucose 95 156 H Calculated Osmolality Calcium Magnesium Total Bilirubin AST ALT Alkaline Phosphatase Troponin I Total Protein Albumin Globulin Albumin/Globulin Ratio Triglycerides Cholesterol LDL Cholesterol VLDL Cholesterol HDL Cholesterol Heart Disease Risk Ratio Lipase Urine Color Urine Appearance Urine pH Ur Specific [place] Urine Protein Urine Glucose (UA) Urine Ketones Urine Blood Urine Nitrate Urine Bilirubin Urine Urobilinogen Urine Leukocytes Urine RBC Urine WBC Ur Squamous Epith Cells Urine Bacteria Ur Culture Indicated? Urine Opiates Screen Ur Barbiturates Screen Ur Phencyclidine Scrn U Amphetamine/Methamph U Benzodiazepines Scrn U Cocaine Metab Screen U Cannabinoids Screen - EKG EKG results: interpreted by me, sinus rhythm
[2016-12-21] MEDS ORDERED: PANTOPRAZOLE 40 MG TABLET PO ONE (16:42)
[2016-12-21] MEDS: PANTOPRAZOLE 40 MG TABLET PO SCH (20:21)
[2016-12-21] MEDS ORDERED: DILTIAZEM CD 120 MG CAPSULE PO SCH (21:00)
[2016-12-21] MEDS: PRAVASTATIN 40 MG TABLET PO SCH (21:33)
[2016-12-22] MEDS: traMADol 50 MG TABLET PO PRN (01:57)
[2016-12-22 04:45] LABS: Basophils % 0.4 % (0.0-0.8); Eosinophils # 0.2 10*3/uL (0.0-0.87); Eosinophils % 2.7 % (0.00-10.9); Hematocrit 31.7 VOL% (35.7-47.0); Hemoglobin 10.4 GM/DL (12.0-16.0); Immature Granulocytes % 0.2 %; Immature Granulocytes Absolute 0.02 #; Lymphocytes # 2.4 10*3/uL (1.4-4.0); Lymphocytes % 30.1 % (21.3-54.2); Mean Corpuscular HGB Conc 32.8 GM/DL (32-36); Mean Corpuscular Hemoglobin 28 PG (27-34); Mean Corpuscular Volume 86.1 FL (87-102); Mean Platelet Volume 11.1 FL (9.6-12.0); Monocytes # 0.5 10*3/uL (0.11-0.8); Monocytes % 5.8 % (1.7-12.7); Neutrophils # 4.9 10*3/uL (1.4-7.4); Neutrophils % 60.8 % (38.7-73.9); Platelet Count 189 T/CUMM (130-400); Red Blood Count 3.68 MC/CUMM (3.8-5.5); Red Cell Distribution Width 13.8 % (9.3-17.3); White Blood Count 8.1 T/CUMM (4-12)
[2016-12-22 05:13] LABS: Albumin 2.7 G/DL (3.4-5.0); Bilirubin,Total 0.6 MG/DL (0.2-1.0); Calcium 8.6 MG/DL (8.5-10.1)
[2016-12-22 05:14] LABS: Osmolality,Calculated 287.3 MOS/KG (273-304); Potassium 4.1 MMOL/L (3.5-5.1)
[2016-12-22] MEDS: PANTOPRAZOLE 40 MG TABLET PO SCH (06:09)
[2016-12-22] MEDS: LISINOPRIL 20 MG TABLET PO SCH (08:22)
[2016-12-22] MEDS: ASPIRIN EC 81 MG TABLET PO SCH (08:22)
[2016-12-22] MEDS: ENOXAPARIN 40 MG/0.4 ML SYRINGE SUBCUT SCH (08:22)
[2016-12-22] MEDS: GABAPENTIN 600 MG TABLET PO SCH (08:22)
[2016-12-22] MEDS: CARVEDILOL 6.25 MG TABLET PO SCH (08:22)
[2016-12-22] MEDS: INSULIN REGULAR 100 UNIT/ML SUBCUT SCH ×2 (08:22→12:57)
[2016-12-22] MEDS: ACETAMINOPHEN 325 MG TABLET PO PRN (08:23)
[2016-12-22] MEDS: INSULIN GLARGINE 100 UNIT/ML SUBCUT SCH (08:23)
[2016-12-22] MEDS ORDERED: ISOSORBIDE MONONITRATE 30 MG TABLET PO SCH (09:00)
[2016-12-22] MEDS: SODIUM CHLORIDE 0.9% 1,000 ML IV SCH (09:41)
--- NOTE | 2016-12-22 10:02 | Discharge Summary ---
<Gwen Nathan - Last Filed: 12/22/16 13:54> Hospital Course - Hospital Course Hospital Course: On 12/20/16 chronically ill 51-year-old female w/ PMHx congestive heart failure, insulin-dependent diabetes mellitus, hypertension, dyslipidemia, peripheral neuropathy, cataracts, renal calculi, gastro- esophageal reflux disease, chronic neck and back pain, anemia, colon polyps; that presented to the ED for the further evaluation of chest pain on 12/20/16. In ED EKG: sinus rhythm; low QRS voltage in percordial leads. CXR: no evidence of acute pathology. LABS: H&H 11.8 & 35.4; Electrolytes within normal range. INR 1.0; PT 10.0; PTT 27.2; Troponin 0.030; AST 17; ALT 23; Alkaline phosphatase 144; Triglycerides 222; Cholesterol 165; LDL 92; HDL 42; Urine is negative for infection. Urine drug positive for opiates. She was admitted to Hospital Services for further evaluation. and cardiology was consulted. Cardiology noted : She has been followed by Dr. Marroquin and has a history of recurrent chest pain, had multiple cardiac and GI evaluation past, including 3 cardiac catheterizations, stress test, endoscopies. Review of her recent cardiac catheterization film, there is no evidence of obstructive CAD, sluggish flow or myocardial bridge. She also reports a history of an aneurysm which is followed by [facility] and a provider in [place]. The chest pain is epigastric, substernal. No evidence of myocardial injury. Interestingly, there is some transient inferior repolarization changes. The etiology is likely noncardiac. ECHO 12/21/16 IMPRESSIONS: Normal left ventricular cavity size. Moderate left ventricular hypertrophy. Left ventricular ejection fraction is estimated at 60 %. Grade 2 diastolic dysfunction. Mild right atrial and moderate left atrial enlargement. Aortic valve sclerosis, with mild stenosis and a trace insufficiency. Possible subvalvular component, as described below. There is no systolic anterior motion of the mitral valve. Consider JESS, if clinically indicated. Mild pulmonary hypertension. Mild pulmonic valve insufficiency. DECEMBER 22, 2016 Cardiology UPDATE: Ms. Mciwlliams is feeling about the same. Vital signs and lab work are stable. Awaiting results of her echocardiogram prior to discharge. If unremarkable, she can follow up with Dr. Marroquin in 2-3 weeks. 12/22/16 - Labs remain unremarkable. Troponin remains stable. Echo was unremarkable and cardiology agrees with discharging patient home today. She will need to follow up with Dr Marroquin -Cardiology(2 weeks); Follow up with Dr Arndt - GI(2 weeks); and Primary care provider at [facility] (in 3 days). I have seen and examined Ms Mcwilliams and formulated her discharge plan, reconciled her medicines coordinated care with the consultants and documented which took 35 minutes. I agree with the summary of the course above by Gwen Nathan. She requested a second opinion from GI and I have referred her to Dr Arndt. She will follow up with [facility] who is her PCP. She will try the PPI BID as DR Pinto recommended. Specialty Discharge - Follow Up or Referrals Follow up with: [facility] [Provider Group] - 3 Days () Vinicio Arndt MD [Physician] - 01/09/17 2:45 pm (wants second opinion about her GI troubles) John Marroquin MD [Physician] - 01/04/17 8:20 am Discharge Plan - Discharge Data Disposition: Disch To Home/Self Care - Discharge Medications New Ciprofloxacin Tab [Cipro Tab] 250 mg PO BID #10 tablet Diltiazem Cd Cap [Cardizem CD] 120 mg PO BEDTIME #30 capsule Isosorbide Mononitrate [Imdur] 30 mg PO DAILY #30 tablet Carvedilol [Coreg] 6.25 mg PO BID #60 tablet Pantoprazole Tab [Protonix Tab] 40 mg PO BID #60 tablet Continue Aspirin Chew Tab 81 mg PO QAM Pravastatin [Pravachol] 40 mg PO BEDTIME Nitroglycerin Sl Tab [Nitrostat] 0.4 mg SL Q5M PRN PRN Reason: Chest Pain Glimepiride 4 mg PO BID Furosemide Tab [Lasix Tab] 20 mg PO QAM Insulin Detemir [Levemir] 15 unit SUBCUT QPM Lisinopril 20 mg PO QAM Insulin Detemir [Levemir] 55 unit SUBCUT QAM Insulin Aspart [NovoLOG] 10 unit SUBCUT BID Albuterol Inhaler [Proventil Inhaler] 2 puff INH Q4H PRN PRN Reason: Shortness Of Breath/Wheezing Gabapentin 600 mg PO TID Tramadol HCl [Tramadol Tab] 50 mg PO Q6H PRN PRN Reason: PAIN CONTROL Discontinued Esomeprazole Magnesium [Esomeprazole] 40 mg PO QAM - Follow Up or Referral Follow Up: [facility] [Provider Group] - 3 Days () Vinicio Arndt MD [Physician] - 01/09/17 2:45 pm (wants second opinion about her GI troubles) John Marroquin MD [Physician] - 01/04/17 8:20 am - Forms/Instructions Instructions: Chest Pain (DC), Epigastric Pain (GEN) Exam - Constitutional Vitals: Period Temp Pulse Resp BP Sys/Montez Pulse Ox Last 24 Hr 97 F-98.4 F 58-74 18-22 116-147/56-71 90-98 Discharge Results Labs on day of discharge: Labs from last 24 hours 12/22/16 12/22/16 12/22/16 12:13 11:42 07:53 WBC RBC Hgb Hct MCV MCH MCHC RDW Plt Count MPV Neut % (Auto) Lymph % (Auto) [place] % (Auto) Eos % (Auto) Baso % (Auto) Neut # (Auto) Lymph # (Auto) [place] # (Auto) Eos # (Auto) Baso # (Auto) Immature Gran % Nucleated RBC % Immature Gran # Nucleated RBCs # Immature Plt Fraction Sodium Potassium Chloride Carbon Dioxide Anion Gap BUN Creatinine GFR Calculation BUN/Creatinine Ratio Glucose POC Glucose 277 H < 20 L* 123 H Calculated Osmolality Calcium Total Bilirubin AST ALT Alkaline Phosphatase Total Protein Albumin Globulin Albumin/Globulin Ratio 12/22/16 12/22/16 12/21/16 03:19 03:19 19:58 WBC 8.1 RBC 3.68 L Hgb 10.4 L Hct 31.7 L MCV 86.1 L MCH 28 MCHC 32.8 RDW 13.8 Plt Count 189 MPV 11.1 Neut % (Auto) 60.8 Lymph % (Auto) 30.1 [place] % (Auto) 5.8 Eos % (Auto) 2.7 Baso % (Auto) 0.4 Neut # (Auto) 4.9 Lymph # (Auto) 2.4 [place] # (Auto) 0.5 Eos # (Auto) 0.2 Baso # (Auto) 0.0 Immature Gran % 0.2 Nucleated RBC % 0.0 Immature Gran # 0.02 Nucleated RBCs # 0.00 Immature Plt Fraction 0.0 Sodium 141 Potassium 4.1 Chloride 107 Carbon Dioxide 29 Anion Gap 9.1 BUN 21 H Creatinine 1.00 GFR Calculation 79 BUN/Creatinine Ratio 21.00 H Glucose 170 H POC Glucose 320 H Calculated Osmolality 287.3 Calcium 8.6 Total Bilirubin 0.60 AST 13 ALT 19 Alkaline Phosphatase 140 H Total Protein 6.0 L Albumin 2.7 L Globulin 3.3 Albumin/Globulin Ratio 0.8 L 12/21/16 16:07 WBC RBC Hgb Hct MCV MCH MCHC RDW Plt Count MPV Neut % (Auto) Lymph % (Auto) [place] % (Auto) Eos % (Auto) Baso % (Auto) Neut # (Auto) Lymph # (Auto) [place] # (Auto) Eos # (Auto) Baso # (Auto) Immature Gran % Nucleated RBC % Immature Gran # Nucleated RBCs # Immature Plt Fraction Sodium Potassium Chloride Carbon Dioxide Anion Gap BUN Creatinine GFR Calculation BUN/Creatinine Ratio Glucose POC Glucose 196 H Calculated Osmolality Calcium Total Bilirubin AST ALT Alkaline Phosphatase Total Protein Albumin Globulin Albumin/Globulin Ratio DS: Provider Date of admission: 12/20/16 17:54 Primary care physician: Jamia Rainey MD Attending physician on admission: Jm Villa MD Consults: 12/21/16 09:00 Consult to Pastoral Services [CONS] Routine Comment: Pastoral Screen: Request Orthopedic Physical Therapist Visit Pastoral Screen Source of Request: Patient 12/21/16 10:59 Consult to Physician [CONS] Routine Comment: Consulting Provider: Cardiology - [facility] Consult to Specialist Group: Cardiology Person Notified: Magda Date Notified: 12/21/16 Time Notified: 11:00 12/21/16 12:56 Consult to Physician [CONS] Routine Comment: persistent abd pain/epigastric pain Consulting Provider: Oj Pinto Consult to Specialist Group: Gastroenterology Person Notified: Sherita Date Notified: 12/21/16 Time Notified: 13:30 12/21/16 16:29 Consult to Wound Care - [place] [CONS] Routine Reason for Wound Care: Wound Care Management Consult Comment: LLE wound Discharging clinician: Gwen Nathan NP <Shannon Moncada - Last Filed: 12/22/16 15:39> Hospital Course - Time spent with patient Time with patient DS: Greater than 30 minutes Diagnosis - Discharge Diagnosis (1) Epigastric pain Status: Resolved (2) Atypical chest pain Status: Ruled-out (3) Obesity Status: Chronic (4) Diabetes mellitus Status: Chronic Discharge Plan - Discharge Data Condition at Discharge: Stable Discharge Diet: diabetic diet, heart healthy Activity: resume usual activities as tolerated Exam - Constitutional General appearance: no acute distress, morbidly obese - Head Head exam: Present: normocephalic, atraumatic - Eye Eye exam: Present: EOMI. Absent: scleral icterus - Respiratory Respiratory exam: Present: clear to auscultation bilaterally - Cardiovascular Cardiovascular exam: Present: regular rate and rhythm - GI/Abdominal GI/Abdominal exam: Present: normal bowel sounds, soft. Absent: guarding, mass, tenderness, rebound - Extremities Exam Extremities exam: Absent: edema
--- NOTE | 2016-12-22 11:43 | Cardiology Progress Note ---
Assessment and Plan - Time spent with patient Time spent with patient: Less than 30 minutes (1) Chest pain Status: Acute Assessment and plan: See plan of care listed below. Current Visit: Yes (2) Hypertension Status: Chronic Assessment and plan: See plan of care listed below. Current Visit: Yes (3) Dyslipidemia Status: Chronic Assessment and plan: See plan of care listed below. Current Visit: Yes (4) Diabetes mellitus Status: Chronic Assessment and plan: See plan of care listed below. Current Visit: Yes (5) GERD (gastroesophageal reflux disease) Status: Chronic Assessment and plan: See plan of care listed below. Current Visit: Yes (6) UTI (urinary tract infection) Status: Acute Assessment and plan: See plan of care listed below. Current Visit: Yes (7) Wound of lower extremity Status: Acute Assessment and plan: See plan of care listed below. Current Visit: Yes Qualifiers: Laterality: left (8) Obesity Status: Chronic Assessment and plan: See plan of care listed below. 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 Marroquin PCP: [facility] SUMMARY: Ms. Mcwilliams is a 51 year old female who was brought to our facility by EMS for further evaluation of chest pain. She has a history of hypertension, diabetes, hyperlipidemia, gastroesophageal reflux disease. She has been followed by Dr. Marroquin and has a history of recurrent chest pain, had multiple cardiac and GI evaluation past, including 3 cardiac catheterizations, stress test, endoscopies. Review of her recent cardiac catheterization film, there is no evidence of obstructive CAD, sluggish flow or myocardial bridge. She also reports a history of an aneurysm which is followed by [facility] and a provider in [place]. The chest pain is epigastric, substernal. No evidence of myocardial injury. Interestingly, there is some transient inferior repolarization changes. The etiology is likely noncardiac, although she has some dynamic EKG changes occasionally. DECEMBER 22, 2016 UPDATE: Ms. Mcwilliams is feeling about the same. Vital signs and lab work are stable. Awaiting results of her echocardiogram prior to discharge. If unremarkable, she can follow up with Dr. Marroquin in 2-3 weeks. ASSESSMENT/PLAN: 1. CHEST PAIN - Atypical in nature. She has had 5 sets of normal cardiac biomarkers. EKG shows sinus rhythm with T-wave inversions most prominent in the inferior leads. She has had negative catheterizations in the past. Echo has been done, awaiting results. If unremarkable, from cardiac perspective, she can follow up with Dr. Marroquin as an outpatient. If this is epicardial vasospasm, or esophageal spasm, NTG/CCB could help. We have started her on Imdur 30mg po daily and Cardizem CD 120mg po daily. 2. HYPERTENSION - Currently well controlled. Will continue to monitor and adjust accordingly. 3. HYPERLIPIDEMIA - Continue lipid lowering agent. Lipid panel revealed triglycerides 222, cholesterol 165, LDL 92, HDL 42. 4. DIABETES - Continue accuchecks and sliding scale insulin. 5. GERD - GI is following. Continue PPI. 6. UTI - Hospital medicine following. Awaiting culture results. She has been started on IV antibiotics. 7. LOWER EXTREMITY WOUND - Will consult wound care. Patient states she has had cellulitis in [facility] since June. 8. OBESITY - Chronic. Encouraged lifestyle modification with diet and exercise. Exam (Progress Note) - Constitutional Vitals: Period Temp Pulse Resp BP Sys/Montez Pulse Ox Last 24 Hr 97.1 F-98.4 F 66-74 18-22 116-147/56-71 90-96 Exam: General appearance: Pleasant and cooperative. Overweight, no acute distress. Head exam: Present: normal inspection, normocephalic, atraumatic. Absent: hematoma, laceration Eye exam: Present: EOMI. Absent: conjunctival injection, nystagmus, periorbital swelling, scleral icterus, laceration to eyelids Pupils: Present: PERRL. Absent: constricted, dilated, fixed, irregular, unequal ENT exam: Present: normal exam, normal external ear exam Neck exam: Present: normal inspection. Absent: lymphadenopathy, meningismus, tenderness, thyromegaly, carotid bruit Respiratory exam: Present: clear to auscultation bilaterally. Absent: accessory muscle use, chest wall tenderness, rales, rhonchi, wheezing. Cardiovascular exam: Present: regular rate and rhythm. Systolic murmur, best appreciated at LUSB. Absent: gallop, JVD, rubs GI/Abdominal exam: Present: normal bowel sounds, soft. Absent: distended, firm , guarding, hernia, mass, tenderness, rebound. Extremities exam: Present: normal inspection, normal capillary refill. Upper extremity pulses 2+. Lower extremity pulses 2+. Mild BLE edema. Cellulitis to LLE with open wound approximately 1/2" in width by 3" in length. Absent: calf tenderness Musculoskeletal: Present: No Fluid Collection, No Pain, Normal Range of Motion Back exam: Present: normal inspection. Absent: muscle spasm, vertebral tenderness Neurological exam: Present: alert, oriented X3, grossly intact without resting or essential tremor Psychiatric exam: Present: normal affect, normal mood Skin exam: Present: normal color, warm, dry, intact. Absent: cyanosis, diaphoretic, rash, urticaria Result/EKG - Labs CBC & BMP: 12/22/16 03:19 12/22/16 03:19 Lab Results: I have reviewed the past 24 hour labs Labs: Laboratory Results - last 24 hr 12/21/16 12/21/16 12/21/16 04:31 11:51 16:07 WBC RBC Hgb Hct MCV MCH MCHC RDW Plt Count MPV Neut % (Auto) Lymph % (Auto) [place] % (Auto) Eos % (Auto) Baso % (Auto) Neut # (Auto) Lymph # (Auto) [place] # (Auto) Eos # (Auto) Baso # (Auto) Immature Gran % Nucleated RBC % Immature Gran # Nucleated RBCs # Immature Plt Fraction Sodium Potassium Chloride Carbon Dioxide Anion Gap BUN Creatinine GFR Calculation BUN/Creatinine Ratio Glucose POC Glucose 156 H 196 H Calculated Osmolality Calcium Total Bilirubin AST ALT Alkaline Phosphatase Total Protein Albumin Globulin Albumin/Globulin Ratio Lipase 125.0 12/21/16 12/22/16 12/22/16 19:58 03:19 03:19 WBC 8.1 RBC 3.68 L Hgb 10.4 L Hct 31.7 L MCV 86.1 L MCH 28 MCHC 32.8 RDW 13.8 Plt Count 189 MPV 11.1 Neut % (Auto) 60.8 Lymph % (Auto) 30.1 [place] % (Auto) 5.8 Eos % (Auto) 2.7 Baso % (Auto) 0.4 Neut # (Auto) 4.9 Lymph # (Auto) 2.4 [place] # (Auto) 0.5 Eos # (Auto) 0.2 Baso # (Auto) 0.0 Immature Gran % 0.2 Nucleated RBC % 0.0 Immature Gran # 0.02 Nucleated RBCs # 0.00 Immature Plt Fraction 0.0 Sodium 141 Potassium 4.1 Chloride 107 Carbon Dioxide 29 Anion Gap 9.1 BUN 21 H Creatinine 1.00 GFR Calculation 79 BUN/Creatinine Ratio 21.00 H Glucose 170 H POC Glucose 320 H Calculated Osmolality 287.3 Calcium 8.6 Total Bilirubin 0.60 AST 13 ALT 19 Alkaline Phosphatase 140 H Total Protein 6.0 L Albumin 2.7 L Globulin 3.3 Albumin/Globulin Ratio 0.8 L Lipase 12/22/16 07:53 WBC RBC Hgb Hct MCV MCH MCHC RDW Plt Count MPV Neut % (Auto) Lymph % (Auto) [place] % (Auto) Eos % (Auto) Baso % (Auto) Neut # (Auto) Lymph # (Auto) [place] # (Auto) Eos # (Auto) Baso # (Auto) Immature Gran % Nucleated RBC % Immature Gran # Nucleated RBCs # Immature Plt Fraction Sodium Potassium Chloride Carbon Dioxide Anion Gap BUN Creatinine GFR Calculation BUN/Creatinine Ratio Glucose POC Glucose 123 H Calculated Osmolality Calcium Total Bilirubin AST ALT Alkaline Phosphatase Total Protein Albumin Globulin Albumin/Globulin Ratio Lipase - EKG EKG results: interpreted by me, sinus rhythm Specialty Discharge - Follow Up or Referrals Follow up with: [facility] [Provider Group] - 3 Days () Vinicio Arndt MD [Physician] - 01/09/17 2:45 pm (wants second opinion about her GI troubles) John Marroquin MD [Physician] - 01/04/17 8:20 am
--- NOTE | 2016-12-22 12:27 | ECHO Report ---
Varsha Mcwilliams 12/22/2016 Exam Date: 08:15 Referring Physician: Barbara Baez Technologist: DEMETRIA Age: 51 Ht (in): 62 Wt (lb): 249 FExam [facility] Gender: Echo [id number]: Chest pain, unspecified, Essential Indications: hypertension, Dyslipidemia, GERD, IDDM, UTI, Wound lower extremity, Hyperlipidemia, unspecified BP: 133 / 71 HR: 62 SinusRhythm: Technical Quality: IMPRESSIONS Normal left ventricular cavity size. Moderate left ventricular hypertrophy. Left ventricular ejection fraction is estimated at 60 %. Grade 2 diastolic dysfunction. Mild right atrial and moderate left atrial enlargement. Aortic valve sclerosis, with mild stenosis and a trace insufficiency. Possible subvalvular component, as described below. There is no systolic anterior motion of the mitral valve. Consider JESS, if clinically indicated. Mild pulmonary hypertension. Mild pulmonic valve insufficiency. MEASUREMENTS (Male / Female) Normal Values 2D ECHO LV Diastolic Diameter PLAX 4.5 cm 4.2 - 5.9 / 3.9 - 5.3 cm LV Systolic Diameter PLAX 2.7 cm LV Fractional Shortening PLAX 39.4 % IVS Diastolic Thickness 1.6 cm 0.6 - 1.0 / 0.6 - 0.9 cm LVPW Diastolic Thickness 1.6 cm 0.6 - 1.0 / 0.6 - 0.9 cm RV Internal Dim ED PLAX 3.2 cm Aortic Root Diameter 3.3 cm LA Systolic Diameter LX 3.9 cm 3.0 - 4.0 / 2.7 - 3.8 cm DOPPLER TR Peak Velocity 305.0 cm/s TR Peak Gradient 37.2 mmHg FINDINGS Left Ventricle Normal left ventricular cavity size. Moderate left ventricular hypertrophy. Left ventricular ejection fraction is estimated at 60 %. Grade 2 diastolic dysfunction. Right Ventricle The right ventricle is normal in size and function. Right Atrium The right atrium is mildly enlarged. Left Atrium Moderately increased left atrial size. Mitral Valve Morphologically normal mitral valve. Trace mitral regurgitation Aortic Valve Aortic valve sclerosis, with appropriate motion of the leaflets. There appears to be a subaortic component, although images are suboptimal to assess whether it is part of the sclerotic aortic valve. Aortic valve area calculated at 1.4 cm. Gradient peak of 33, mean 18 mmHg. Peak velocity across the LVOT/aortic valve 2.88 m/s. Tricuspid Valve Morphologically normal tricuspid valve. Mild tricuspid valve regurgitation. Tricuspid regurgitation velocities suggest a PAP of 37 mmHg plus right atrial pressure. Pulmonic Valve Morphologically normal pulmonic valve. Mild pulmonary valve regurgitation. Pericardium Normal pericardium without effusion. Aorta Normal ascending aorta dimension. Hang Dumont (Electronically Signed) 22 December 2016 Final Date: 12:25
[2016-12-22 12:50] VITALS: BP 118/60
[2016-12-22] MEDS: cefTRIAXone 1,000 MG in SODIUM CHLORIDE 0.9% 100 ML IV SCH (14:12)
--- NOTE | 2016-12-25 16:03 | Physician Query Form ---
CLICK EDIT DOCUMENT TO SELECT QUERY ANSWER --> OK --> SIGN Chary Cuenca RN Clinical Fur Finisher Tailor W) [phone] (f) [phone] [email or web address] PROVIDERS: Make your selection(s) from the choices in EACH section by typing an "x" and enter comments in the comment section. Please use your independent medical judgment in providing your response. This request does not imply that any particular answer is desired or expected. CLINICAL INDICATORS: (Providers should not edit this section) Based on documentation of "history of CHF", ECHO showed EF of 60% with Grade 2 diastolic dysfunction. Pt. treated with PO Lasix. Please clarify the type of CHF the patient has a history of. Please provide further specificity regarding CHF. TYPE: ( ) Past Medical History of Systolic CHF (x) Past Medical History of Diastolic CHF ( ) Past Medical History of Combined Systolic and Diastolic CHF ( ) Clinically unable to determine COMMENTS: PLEASE ALSO DOCUMENT RESPONSE IN PROGRESS NOTES AND/OR DISCHARGE SUMMARY Use of terms such as suspected, likely, or probable (associated with a specific diagnosis that is being evaluated, monitored, or treated as if it exists) are acceptable and can be restated in the discharge summary if not ruled out. [facility]
== END 2016-12-22 14:07 | disposition home or self-care (01) | DRG 392 ==
LOC: EDUNIT# → EDBD → N.ED 16:27 → SUATTDRO 17:54 → N.EDINP 17:54 → N.TELEN 19:15
PROVIDERS: ADMIT Family Medicine; ATTEND Internal Medicine

== ENCOUNTER 2017-07-05 05:00 | Inpatient (IN) ==
[2017-07-04 09:50] LABS: Basophils # 0.1 10*3/uL (0.0-0.2); Basophils % 0.6 % (0.0-0.8); Eosinophils # 0.3 10*3/uL (0.0-0.87); Eosinophils % 3.3 % (0.00-10.9); Hematocrit 38.3 VOL% (35.7-47.0); Hemoglobin 12.6 GM/DL (12.0-16.0); Immature Granulocytes % 0.4 %; Immature Granulocytes Absolute 0.04 #; Lymphocytes # 2.4 10*3/uL (1.4-4.0); Lymphocytes % 24.9 % (21.3-54.2); Mean Corpuscular HGB Conc 32.9 GM/DL (32-36); Mean Corpuscular Hemoglobin 31 PG (27-34); Mean Corpuscular Volume 92.7 FL (87-102); Mean Platelet Volume 10.2 FL (9.6-12.0); Monocytes # 0.6 10*3/uL (0.11-0.8); Monocytes % 5.9 % (1.7-12.7); Neutrophils # 6.2 10*3/uL (1.4-7.4); Neutrophils % 64.9 % (38.7-73.9); Platelet Count 220 T/CUMM (130-400); Red Blood Count 4.13 MC/CUMM (3.8-5.5); Red Cell Distribution Width 13.3 % (9.3-17.3); White Blood Count 9.6 T/CUMM (4-12)
[2017-07-04 10:00] LABS: INR 0.9; PT Patient Result 9.7 SECS; Partial Thromboplastin Time 25.5 SECS (0-40)
[2017-07-04 10:14] LABS: Apearance,Urine Slightly Hazy (Clear); Bilirubin,Urine Negative (Negative); Blood, Urine Negative (Negative); Glucose,Urine (UA) 150 mg/dL (Negative); Hyaline Casts,Urine 3 /LPF (0-3); Ketones,Urine Negative (Negative); Mucus,Urine Occasional /LPF (Occasional); Nitrite,Urine Negative (Negative); Protein,Urine >=500 MG/DL; RBC,Urine 2 /HPF (0-4); Squamous Epithelial Cell,Urine Occasional /HPF (0-10); Urine Color Yellow (Yellow); Urine Specific Gravity 1.027 (1.001-1.035); WBC,Urine 1 /HPF (0-6)
[2017-07-04 10:28] LABS: Calcium 9.4 MG/DL (8.5-10.1); Osmolality,Calculated 287.3 MOS/KG (273-304); Potassium 4.1 MMOL/L (3.5-5.1)
[~2017-07-05 05:00] MED LIST: PAPAVERINE 60 MG/2 ML VIAL ONE; SODIUM CHLORIDE 0.9% 1,000 ML IV PRN; TISSUE ADHESIVE 1 EACH APPLICATOR TOP ONE; VANCOMYCIN 1,000 MG VIAL ONE
[2017-07-05] MEDS ORDERED: DIAZEPAM 5 MG TABLET PO ONE (06:00)
[2017-07-05] MEDS ORDERED: SUFentanil 250 MCG/5 ML AMP ONE (06:10)
[2017-07-05] MEDS ORDERED: MIDAZOLAM 10 MG/2 ML VIAL ONE ×2 (06:10)
[2017-07-05] MEDS ORDERED: DIAZEPAM 5 MG TABLET ONE (06:31)
[2017-07-05] MEDS: LACTATED RINGERS 1,000 ML IV SCH (06:43)
[2017-07-05] MEDS ORDERED: PROPOFOL 1,000 MG/100 ML BOTTLE IV ONE ×2 (06:48→10:13)
[2017-07-05] MEDS ORDERED: SODIUM BICARBONATE 50 MEQ/50 ML SYRINGE IV ONE ×2 (07:42→10:38)
[2017-07-05] MEDS ORDERED: CALCIUM CHLORIDE 1,000 MG/10 ML SYRINGE IV ONE (07:42)
[2017-07-05] MEDS ORDERED: NITROGLYCERIN DRIP 0 MG/0 ML BOTTLE IV ONE (07:42)
[2017-07-05] MEDS ORDERED: CEFUROXIME 1,500 MG VIAL ONE (07:42)
[2017-07-05] MEDS ORDERED: EPINEPHrine 1 MG/10 ML SYRINGE ONE (07:42)
[2017-07-05] MEDS ORDERED: ALBUMIN 5% 12.5 GM/250 ML VIAL IV ONE (07:43)
[2017-07-05] MEDS ORDERED: POTASSIUM CHLORIDE RIDER 100 ML IV ONE (07:43)
[2017-07-05 07:45] LABS: ABG Base Excess -0.9 MMOL/L (-2.5-2.5); ABG HCO3 23.7 MMOL/L (20-26); ABG PCO2 41.2 MM HG (35-48); ABG PH 7.378 (7.35-7.45); ABG TCO2 21.6 MMOL/L (23-27); Glucose Heart Surgery 273 MG/DL (74-106); Hematocrit Heart Surgery 35.4 PERCENT (37-47); Hemoglobin Heart Surgery 11.5 G/DL (12.0-16.0); Ionized Calcium Arterial 1.18 MMOL/L (1.21-1.46); PCO2 Patient Temp Arterial 41.2 MMHG; PH Patient Temp Arterial 7.378; Patient Temperature 37 CELCIUS; Potassium Heart/CVR 4.1 MMOL/L (3.5-5.1); Sodium Heart/CVR 136 MMOL/L (135-145)
[2017-07-05 07:53] LABS: Apearance,Urine CLEAR (Clear); Bilirubin,Urine Negative (Negative); Blood, Urine Small mg/dL (Negative); Glucose,Urine (UA) >=500 mg/dL (Negative); Ketones,Urine Negative (Negative); Nitrite,Urine Negative (Negative); Protein,Urine 100 MG/DL; RBC,Urine 4 /HPF (0-4); Squamous Epithelial Cell,Urine Occasional /HPF (0-10); Urine Color Yellow (Yellow); Urine Specific Gravity 1.022 (1.001-1.035); Urine Urobilinogen < 2.0 EU/DL (0.2-1.0); WBC,Urine <1 /HPF (0-6)
[2017-07-05] MEDS ORDERED: VANCOMYCIN 1,000 MG VIAL ONE ×2 (08:59→11:01)
[2017-07-05 09:28] LABS: Hemoglobin Heart Surgery 7.7 G/DL (12.0-16.0); PCO2 Patient Temp Venous 40.6 MM HG; PH Patient Temp Venous 7.4; PO2 Patient Temp Venous 39.7 MM HG; Potassium Heart/CVR 4.6 MMOL/L (3.5-5.1); VBG Base Excess 0.5 MEQ/L (0-4); VBG HCO3 24.7 MEQ/L (24-28); VBG Oxygen Saturation 81.7 %; VBG PCO2 44.7 MMHG (41-51); VBG PH 7.371; VBG PO2 45.5 MMHG (17-40)
[2017-07-05 09:57] LABS: Hemoglobin Heart Surgery 8.1 G/DL (12.0-16.0); PCO2 Patient Temp Venous 41.5 MM HG; PH Patient Temp Venous 7.398; PO2 Patient Temp Venous 43.1 MM HG; Potassium Heart/CVR 4.9 MMOL/L (3.5-5.1); VBG Base Excess 0.2 MEQ/L (0-4); VBG Oxygen Saturation 74.5 %; VBG PCO2 41.5 MMHG (41-51); VBG PH 7.398; VBG PO2 43.1 MMHG (17-40)
[2017-07-05] MEDS ORDERED: ALBUMIN 25% 25 GM/100 ML VIAL IV ONE (10:38)
[2017-07-05] MEDS ORDERED: PROTAMINE SULFATE 250 MG/25 ML VIAL IV ONE (10:38)
[2017-07-05] MEDS ORDERED: DEXTROSE 5% KCL 20 MEQ 20 MEQ/1,000 ML BAG IV ONE (10:38)
[2017-07-05] MEDS ORDERED: methylPREDNISolone SOD SUC 1,000 MG/8 ML VIAL ONE (10:39)
[2017-07-05] MEDS ORDERED: PHENYLEPHRINE 10 MG/1 ML VIAL IV ONE ×2 (10:39→12:32)
[2017-07-05] MEDS ORDERED: MAGNESIUM SULFATE 1 GM/2 ML VIAL ONE (10:39)
[2017-07-05] MEDS ORDERED: MANNITOL 12.5 GM/50 ML VIAL IV ONE (10:39)
[2017-07-05] MEDS ORDERED: FUROSEMIDE 20 MG/2 ML VIAL ONE ×2 (10:39→12:32)
[2017-07-05] MEDS ORDERED: HEPARIN 10,000 UNIT/10 ML VIAL ONE (10:39)
[2017-07-05] MEDS ORDERED: THROMBIN TOPICAL (RECOMBINANT) 5,000 UNIT VIAL TOP ONE (10:41)
[2017-07-05 10:59] LABS: ABG Base Excess -3.9 MMOL/L (-2.5-2.5); ABG Oxygen Saturation 97.7 % (95-100); ABG PCO2 37.6 MM HG (35-48); ABG PH 7.365 (7.35-7.45); ABG PO2 124.1 MM HG (80-95); ABG TCO2 22.2 MMOL/L (23-27); Glucose Heart Surgery 280 MG/DL (74-106); Ionized Calcium Arterial 1.08 MMOL/L (1.21-1.46); PCO2 Patient Temp Arterial 37.6 MMHG; PH Patient Temp Arterial 7.365; PO2 Patient Temp Arterial 124.1 MM HG; Patient Temperature 37 CELCIUS; Potassium Heart/CVR 3.9 MMOL/L (3.5-5.1); Sodium Heart/CVR 131 MMOL/L (135-145)
[2017-07-05] MEDS ORDERED: PHENYLEPHRINE DRIP 40 MG/250 ML PREMIX IV ONE (11:34)
[2017-07-05] MEDS ORDERED: SODIUM CHLORIDE 0.9% 250 ML IV PRN (11:49)
[2017-07-05] MEDS ORDERED: MAGNESIUM SULF RIDER 4 GM in PREMIX 1 EACH IV PRN (11:49)
[2017-07-05] MEDS ORDERED: POTASSIUM CHLORIDE RIDER 10 MEQ in PREMIX 1 EACH IV PRN (11:49)
[2017-07-05] MEDS ORDERED: MIDAZOLAM 2 MG/2 ML VIAL IV PRN (11:49)
[2017-07-05] MEDS ORDERED: CHLORHEXIDINE 4% SOLN 118 ML BOTTLE TOP PRN (11:49)
[2017-07-05] MEDS ORDERED: CALCIUM CHLORIDE 1,000 MG/10 ML SYRINGE IV PRN (11:49)
[2017-07-05] MEDS ORDERED: DEXTROSE 50% 25 GM/50 ML VIAL IV PRN ×2 (11:49)
[2017-07-05] MEDS ORDERED: INSULIN REGULAR 100 UNIT/ML IV PRN (11:49)
[2017-07-05] MEDS ORDERED: ONDANSETRON 4 MG/2 ML VIAL IV PRN (11:49)
[2017-07-05] MEDS ORDERED: ACETAMINOPHEN 650 MG SUPP RECTAL PRN (11:49)
[2017-07-05] MEDS ORDERED: MAGNESIUM SULF RIDER 2 GM in PREMIX 1 EACH IV PRN (11:49)
[2017-07-05] MEDS: PHENYLEPHRINE DRIP 40 MG/250 ML PREMIX IV SCH (12:00)
[2017-07-05] MEDS: ALBUMIN 5% 12.5 GM in PREMIX 1 EACH IV PRN ×2 (12:00→22:39)
[2017-07-05] MEDS ORDERED: SODIUM CHLORIDE 0.45% 1,000 ML IV SCH (12:00)
[2017-07-05] MEDS: SODIUM CHLORIDE 0.45% 1,000 ML IV SCH (12:16)
[2017-07-05 12:26] LABS: ABG Base Excess -2.5 MMOL/L (-2.5-2.5); ABG HCO3 21.5 MMOL/L (20-26); ABG Oxygen Saturation 97.6 % (95-100); ABG PCO2 33.5 MM HG (35-48); ABG PH 7.425 (7.35-7.45); ABG PO2 111.2 MM HG (80-95); ABG TCO2 22.5 MMOL/L (23-27); Glucose Heart Surgery 241 MG/DL (74-106); Hemoglobin Heart Surgery 8.3 G/DL (12.0-16.0); Potassium Heart/CVR 3.6 MMOL/L (3.5-5.1)
[2017-07-05] MEDS: POTASSIUM CHLORIDE RIDER 20 MEQ in PREMIX 1 EACH IV PRN ×2 (12:28→13:31)
[2017-07-05 12:29] LABS: Basophils % 0.2 % (0.0-0.8); Eosinophils % 0.3 % (0.00-10.9); Hemoglobin 7.8 GM/DL (12.0-16.0); Immature Granulocytes % 0.9 %; Immature Granulocytes Absolute 0.12 #; Lymphocytes # 1.4 10*3/uL (1.4-4.0); Lymphocytes % 10.8 % (21.3-54.2); Mean Corpuscular HGB Conc 32.5 GM/DL (32-36); Mean Corpuscular Hemoglobin 31 PG (27-34); Mean Corpuscular Volume 94.1 FL (87-102); Mean Platelet Volume 10.9 FL (9.6-12.0); Monocytes # 0.6 10*3/uL (0.11-0.8); Monocytes % 4.4 % (1.7-12.7); Neutrophils % 83.4 % (38.7-73.9); Platelet Count 151 T/CUMM (130-400); Red Blood Count 2.55 MC/CUMM (3.8-5.5); Red Cell Distribution Width 13.4 % (9.3-17.3); White Blood Count 13.2 T/CUMM (4-12)
[2017-07-05] MEDS: INSULIN REGULAR DRIP 100 ML IV SCH ×2 (12:31→20:53)
[2017-07-05] MEDS ORDERED: EPINEPHrine 1 MG/ML VIAL ONE (12:32)
[2017-07-05] MEDS ORDERED: ETOMIDATE 40 MG/20 ML VIAL IV ONE (12:32)
[2017-07-05] MEDS ORDERED: VECURONIUM 10 MG VIAL IV ONE (12:32)
[2017-07-05] MEDS ORDERED: CALCIUM CHLORIDE 1,000 MG/10 ML VIAL IV ONE (12:32)
[2017-07-05] MEDS ORDERED: SEVOFLURANE 1 UNIT/15 MINUTE INH ONE (12:32)
[2017-07-05] MEDS ORDERED: TRANEXAMIC ACID 1,000 MG/10 ML VIAL IV ONE (12:32)
[2017-07-05] MEDS ORDERED: SODIUM CHLORIDE 0.9% 2,000 ML IV ONE (12:33)
[2017-07-05] MEDS ORDERED: GLYCOPYRROLATE 0.4 MG/2 ML VIAL ONE (12:33)
[2017-07-05] MEDS ORDERED: NITROGLYCERIN DRIP 50 MG/250 ML BOTTLE IV ONE (12:33)
[2017-07-05] MEDS ORDERED: SUCCINYLCHOLINE 200 MG/10 ML VIAL ONE (12:33)
[2017-07-05] MEDS ORDERED: PROPOFOL 1,500 MG/150 ML BOTTLE IV ONE (12:33)
[2017-07-05] MEDS ORDERED: SODIUM CHLORIDE 0.9% 100 ML IV ONE (12:33)
[2017-07-05] MEDS ORDERED: SODIUM CHLORIDE 0.9% 500 ML IV ONE (12:33)
[2017-07-05] MEDS ORDERED: LACTATED RINGERS 3,000 ML IV ONE (12:33)
[2017-07-05 12:37] LABS: INR 1.1; PT Patient Result 11.3 SECS; Partial Thromboplastin Time 30.8 SECS (0-40)
[2017-07-05 13:03] LABS: Blood Urea Nitrogen 19 MG/DL (7-18); Calcium 7.6 MG/DL (8.5-10.1); Glucose 252 MG/DL (74-106); Osmolality,Calculated 287.5 MOS/KG (273-304); Potassium 3.9 MMOL/L (3.5-5.1); Sodium 139 MMOL/L (136-145)
[2017-07-05] MEDS ORDERED: CALCIUM GLUCONATE 2,000 MG in SODIUM CHLORIDE 0.9% 100 ML IV ONE (13:34)
[2017-07-05] MEDS: MORPHINE 2 MG/1 ML SYRINGE IV PRN ×4 (13:49→23:53)
[2017-07-05 16:18] LABS: ABG Base Excess -3.1 MMOL/L (-2.5-2.5); ABG HCO3 22.5 MMOL/L (20-26); ABG Oxygen Saturation 95.3 % (95-100); ABG PCO2 42.6 MM HG (35-48); ABG PH 7.341 (7.35-7.45); ABG PO2 88.5 MM HG (80-95); ABG TCO2 23.8 MMOL/L (23-27); Glucose Heart Surgery 232 MG/DL (74-106); Potassium Heart/CVR 4.3 MMOL/L (3.5-5.1)
[2017-07-05 19:37] LABS: ABG Base Excess -4.4 MMOL/L (-2.5-2.5); ABG HCO3 20.7 MMOL/L (20-26); ABG Oxygen Saturation 96.2 % (95-100); ABG PCO2 43.8 MM HG (35-48); ABG PH 7.303 (7.35-7.45); ABG PO2 80.8 MM HG (80-95); ABG TCO2 20.4 MMOL/L (23-27); Glucose Heart Surgery 230 MG/DL (74-106); Hematocrit Heart Surgery 25.5 PERCENT (37-47); Hemoglobin Heart Surgery 8.2 G/DL (12.0-16.0); Potassium Heart/CVR 4.7 MMOL/L (3.5-5.1)
[2017-07-05] MEDS: CEFUROXIME INJ 1,500 MG in SYRINGE 1 EACH IV SCH (20:35)
[2017-07-05] MEDS: CHLORHEXIDINE 0.12% ORAL RINSE 60 ML BOTTLE SWISH/SPIT SCH (21:07)
[2017-07-06] MEDS: SODIUM CHLORIDE 0.45% 1,000 ML IV SCH ×2 (00:30→08:17)
[2017-07-06] MEDS: MORPHINE 2 MG/1 ML SYRINGE IV PRN ×5 (03:26→23:45)
[2017-07-06 04:06] LABS: Basophils % 0.1 % (0.0-0.8); Hematocrit 22.5 VOL% (35.7-47.0); Hemoglobin 7.5 GM/DL (12.0-16.0); Immature Granulocytes % 0.7 %; Lymphocytes # 1.3 10*3/uL (1.4-4.0); Lymphocytes % 8.4 % (21.3-54.2); Mean Corpuscular HGB Conc 33.3 GM/DL (32-36); Mean Corpuscular Hemoglobin 31 PG (27-34); Mean Corpuscular Volume 93.4 FL (87-102); Mean Platelet Volume 11.1 FL (9.6-12.0); Monocytes # 0.3 10*3/uL (0.11-0.8); Monocytes % 1.8 % (1.7-12.7); Neutrophils # 13.2 10*3/uL (1.4-7.4); Platelet Count 162 T/CUMM (130-400); Red Blood Count 2.41 MC/CUMM (3.8-5.5); Red Cell Distribution Width 13.7 % (9.3-17.3); White Blood Count 14.8 T/CUMM (4-12)
[2017-07-06 04:36] LABS: Calcium 7.8 MG/DL (8.5-10.1); Osmolality,Calculated 283.4 MOS/KG (273-304); Potassium 4.6 MMOL/L (3.5-5.1)
[2017-07-06] MEDS: INSULIN REGULAR DRIP 100 ML IV SCH (05:00)
[2017-07-06] MEDS: MORPHINE 10 MG/1 ML VIAL IV PRN ×2 (07:03→14:40)
[2017-07-06] MEDS ORDERED: GLUCAGON 1 MG VIAL IM PRN ×2 (07:07→20:06)
[2017-07-06] MEDS ORDERED: DEXTROSE 50% 25 GM/50 ML VIAL IV PRN ×2 (07:07→20:06)
[2017-07-06] MEDS ORDERED: FUROSEMIDE 40 MG/4 ML VIAL IV ONE ×2 (07:10→18:37)
[2017-07-06] MEDS: LACTATED RINGERS 1,000 ML IV SCH (07:21)
[2017-07-06] MEDS: CEFUROXIME INJ 1,500 MG in SYRINGE 1 EACH IV SCH ×2 (08:13→19:12)
[2017-07-06] MEDS: INSULIN REGULAR 100 UNIT/ML SUBCUT SCH ×6 (08:28→23:45)
[2017-07-06] MEDS: CHLORHEXIDINE 0.12% ORAL RINSE 60 ML BOTTLE SWISH/SPIT SCH ×2 (09:00→21:35)
[2017-07-06] MEDS: ASPIRIN EC 325 MG TABLET PO SCH (10:08)
[2017-07-06] MEDS: CARVEDILOL 3.125 MG TABLET PO SCH ×2 (13:45→20:34)
[2017-07-06] MEDS: LISINOPRIL 10 MG TABLET PO SCH (13:45)
[2017-07-06] MEDS: FUROSEMIDE 40 MG TABLET PO SCH (14:28)
[2017-07-06] MEDS: PHENYLEPHRINE DRIP 40 MG/250 ML PREMIX IV SCH (15:01)
[2017-07-06] MEDS ORDERED: traMADol 50 MG TABLET PO PRN (15:26)
[2017-07-06] MEDS: ALBUTEROL 2.5 MG/3 ML NEB RESP TX SCH ×3 (15:35→23:49)
[2017-07-06] MEDS ORDERED: METOPROLOL TARTRATE 5 MG/5 ML VIAL IV ONE (16:59)
[2017-07-06 17:19] LABS: ABG Base Excess -3.9 MMOL/L (-2.5-2.5); ABG HCO3 20.7 MMOL/L (20-26); ABG Oxygen Saturation 87.7 % (95-100); ABG PCO2 35.5 MM HG (35-48); ABG PH 7.383 (7.35-7.45); ABG PO2 58.2 MM HG (80-95); ABG TCO2 21.8 MMOL/L (23-27); Glucose Heart Surgery 439 MG/DL (74-106); Hemoglobin Heart Surgery 9.7 G/DL (12.0-16.0); Potassium Heart/CVR 4.6 MMOL/L (3.5-5.1)
[2017-07-06] MEDS: ATORVASTATIN 40 MG TABLET PO SCH (20:34)
[2017-07-06] MEDS ORDERED: INSULIN GLARGINE 100 UNIT/ML SUBCUT SCH (21:00)
[2017-07-07] MEDS: ALBUTEROL 2.5 MG/3 ML NEB RESP TX SCH ×6 (03:52→23:59)
[2017-07-07] MEDS: MORPHINE 2 MG/1 ML SYRINGE IV PRN ×3 (04:00→17:11)
[2017-07-07] MEDS: INSULIN REGULAR 100 UNIT/ML SUBCUT SCH ×5 (04:00→21:54)
[2017-07-07 05:39] LABS: Calcium 7.9 MG/DL (8.5-10.1); Osmolality,Calculated 291.7 MOS/KG (273-304); Potassium 4.4 MMOL/L (3.5-5.1)
[2017-07-07 06:35] LABS: Basophils % 0.1 % (0.0-0.8); Hematocrit 27.5 VOL% (35.7-47.0); Hemoglobin 8.8 GM/DL (12.0-16.0); Immature Granulocytes Absolute 0.32 #; Lymphocytes # 2.2 10*3/uL (1.4-4.0); Mean Corpuscular Hemoglobin 30 PG (27-34); Mean Corpuscular Volume 94.5 FL (87-102); Mean Platelet Volume 10.9 FL (9.6-12.0); Monocytes # 1.4 10*3/uL (0.11-0.8); Monocytes % 8.7 % (1.7-12.7); NRBC # 0.02 10*3/uL; Neutrophils # 11.7 10*3/uL (1.4-7.4); Neutrophils % 75.2 % (38.7-73.9); Platelet Count 160 T/CUMM (130-400); Red Blood Count 2.91 MC/CUMM (3.8-5.5); Red Cell Distribution Width 14.6 % (9.3-17.3); White Blood Count 15.6 T/CUMM (4-12)
[2017-07-07] MEDS: CARVEDILOL 3.125 MG TABLET PO SCH ×2 (11:00→21:45)
[2017-07-07] MEDS: ASPIRIN EC 325 MG TABLET PO SCH (11:00)
[2017-07-07] MEDS: FUROSEMIDE 40 MG TABLET PO SCH (11:00)
[2017-07-07] MEDS: LISINOPRIL 10 MG TABLET PO SCH (11:00)
[2017-07-07] MEDS: CHLORHEXIDINE 0.12% ORAL RINSE 60 ML BOTTLE SWISH/SPIT SCH ×2 (11:00→21:58)
[2017-07-07] MEDS: PHENYLEPHRINE DRIP 40 MG/250 ML PREMIX IV SCH (12:35)
[2017-07-07] MEDS: SODIUM CHLORIDE 0.45% 1,000 ML IV SCH (13:08)
[2017-07-07] MEDS: GABAPENTIN 600 MG TABLET PO SCH ×2 (15:29→21:45)
[2017-07-07] MEDS: ATORVASTATIN 40 MG TABLET PO SCH (21:45)
[2017-07-07] MEDS: DILTIAZEM CD 120 MG CAPSULE PO SCH (21:45)
[2017-07-07] MEDS: INSULIN GLARGINE 100 UNIT/ML SUBCUT SCH (21:46)
[2017-07-08] MEDS: INSULIN REGULAR 100 UNIT/ML SUBCUT SCH ×6 (01:05→20:53)
[2017-07-08] MEDS: ALBUTEROL 2.5 MG/3 ML NEB RESP TX SCH ×5 (03:37→19:41)
[2017-07-08 04:38] LABS: Basophils % 0.3 % (0.0-0.8); Eosinophils # 0.3 10*3/uL (0.0-0.87); Eosinophils % 2.2 % (0.00-10.9); Hematocrit 25.7 VOL% (35.7-47.0); Hemoglobin 8.3 GM/DL (12.0-16.0); Immature Granulocytes % 0.5 %; Immature Granulocytes Absolute 0.07 #; Lymphocytes % 27.6 % (21.3-54.2); Mean Corpuscular HGB Conc 32.3 GM/DL (32-36); Mean Corpuscular Hemoglobin 31 PG (27-34); Mean Corpuscular Volume 94.8 FL (87-102); Mean Platelet Volume 10.5 FL (9.6-12.0); Monocytes # 1.4 10*3/uL (0.11-0.8); Monocytes % 9.5 % (1.7-12.7); NRBC # 0.03 10*3/uL; Neutrophils # 8.6 10*3/uL (1.4-7.4); Neutrophils % 59.9 % (38.7-73.9); Platelet Count 118 T/CUMM (130-400); Red Blood Count 2.71 MC/CUMM (3.8-5.5); Red Cell Distribution Width 14.5 % (9.3-17.3); White Blood Count 14.4 T/CUMM (4-12)
[2017-07-08 05:06] LABS: Calcium 7.7 MG/DL (8.5-10.1); Osmolality,Calculated 290.4 MOS/KG (273-304); Potassium 3.8 MMOL/L (3.5-5.1)
[2017-07-08] MEDS: ASPIRIN EC 325 MG TABLET PO SCH (08:56)
[2017-07-08] MEDS: MULTIVITAMIN (CENTRUM) TABLET PO SCH (08:56)
[2017-07-08] MEDS: CLOPIDOGREL 75 MG TABLET PO SCH (08:57)
[2017-07-08] MEDS: GABAPENTIN 600 MG TABLET PO SCH ×3 (08:57→20:54)
[2017-07-08] MEDS: CHLORHEXIDINE 0.12% ORAL RINSE 60 ML BOTTLE SWISH/SPIT SCH ×2 (08:58→20:55)
[2017-07-08] MEDS: LISINOPRIL 10 MG TABLET PO SCH (12:23)
[2017-07-08] MEDS: FUROSEMIDE 40 MG TABLET PO SCH (12:23)
[2017-07-08] MEDS: CARVEDILOL 3.125 MG TABLET PO SCH ×2 (12:23→21:46)
[2017-07-08] MEDS ORDERED: LACTATED RINGERS 500 ML IV ONE (12:28)
[2017-07-08] MEDS ORDERED: LEVOFLOXACIN 750 MG TABLET PO SCH (13:00)
[2017-07-08] MEDS: INSULIN GLARGINE 100 UNIT/ML SUBCUT SCH (20:54)
[2017-07-08] MEDS: MORPHINE 2 MG/1 ML SYRINGE IV PRN (20:54)
[2017-07-08] MEDS: DILTIAZEM CD 120 MG CAPSULE PO SCH (20:54)
[2017-07-08] MEDS: ATORVASTATIN 40 MG TABLET PO SCH (20:54)
[2017-07-09] MEDS: ALBUTEROL 2.5 MG/3 ML NEB RESP TX SCH ×4 (00:13→11:20)
[2017-07-09] MEDS: INSULIN REGULAR 100 UNIT/ML SUBCUT SCH ×4 (00:59→13:10)
[2017-07-09 05:31] LABS: Basophils % 0.2 % (0.0-0.8); Eosinophils # 0.4 10*3/uL (0.0-0.87); Eosinophils % 3.6 % (0.00-10.9); Hematocrit 25.1 VOL% (35.7-47.0); Immature Granulocytes % 0.7 %; Immature Granulocytes Absolute 0.07 #; Lymphocytes # 2.6 10*3/uL (1.4-4.0); Lymphocytes % 25.6 % (21.3-54.2); Mean Corpuscular HGB Conc 31.9 GM/DL (32-36); Mean Corpuscular Hemoglobin 31 PG (27-34); Mean Corpuscular Volume 96.5 FL (87-102); Mean Platelet Volume 10.6 FL (9.6-12.0); Monocytes # 0.8 10*3/uL (0.11-0.8); Monocytes % 7.9 % (1.7-12.7); NRBC # 0.02 10*3/uL; Neutrophils # 6.2 10*3/uL (1.4-7.4); Platelet Count 149 T/CUMM (130-400); Red Cell Distribution Width 14.2 % (9.3-17.3); White Blood Count 10.1 T/CUMM (4-12)
[2017-07-09 06:09] LABS: Calcium 7.9 MG/DL (8.5-10.1); Osmolality,Calculated 292.7 MOS/KG (273-304); Potassium 3.7 MMOL/L (3.5-5.1)
[2017-07-09] MEDS: ASPIRIN EC 325 MG TABLET PO SCH (09:35)
[2017-07-09] MEDS: MULTIVITAMIN (CENTRUM) TABLET PO SCH (09:35)
[2017-07-09] MEDS: FUROSEMIDE 40 MG TABLET PO SCH (09:35)
[2017-07-09] MEDS: CARVEDILOL 3.125 MG TABLET PO SCH (09:36)
[2017-07-09] MEDS: GABAPENTIN 600 MG TABLET PO SCH (09:36)
[2017-07-09] MEDS: CLOPIDOGREL 75 MG TABLET PO SCH (09:36)
[2017-07-09] MEDS: CHLORHEXIDINE 0.12% ORAL RINSE 60 ML BOTTLE SWISH/SPIT SCH (09:36)
[2017-07-09 15:58] VITALS: BP 94/60
== END 2017-07-09 16:16 | disposition home health service (06) | DRG 236 ==
LOC: N.SDSINP 05:42 → N.CVR 10:39 → N.ICU 07-06 10:41 → N.TELES 07-07 13:10
PROVIDERS: ADMIT Thoracic Surgery (Cardiothoracic Vascular Surgery); ATTEND Thoracic Surgery (Cardiothoracic Vascular Surgery)

== ENCOUNTER 2017-07-17 11:36 | Observation (INO) ==
[2017-07-17] MEDS ORDERED: FUROSEMIDE 100 MG/10 ML VIAL IV STA (11:51)
[2017-07-17] MEDS ORDERED: FUROSEMIDE 40 MG/4 ML VIAL ONE (11:57)
[2017-07-17 12:13] LABS: Basophils # 0.1 10*3/uL (0.0-0.2); Basophils % 0.6 % (0.0-0.8); Eosinophils # 0.7 10*3/uL (0.0-0.87); Eosinophils % 6.3 % (0.00-10.9); Hematocrit 28.2 VOL% (35.7-47.0); Hemoglobin 8.9 GM/DL (12.0-16.0); Lymphocytes # 1.9 10*3/uL (1.4-4.0); Lymphocytes % 17.8 % (21.3-54.2); Mean Corpuscular HGB Conc 31.6 GM/DL (32-36); Mean Corpuscular Hemoglobin 30 PG (27-34); Mean Corpuscular Volume 95.3 FL (87-102); Mean Platelet Volume 9.7 FL (9.6-12.0); Monocytes # 0.7 10*3/uL (0.11-0.8); Monocytes % 6.5 % (1.7-12.7); NRBC # 0.02 10*3/uL; Neutrophils # 7.1 10*3/uL (1.4-7.4); Neutrophils % 67.8 % (38.7-73.9); Platelet Count 302 T/CUMM (130-400); Red Blood Count 2.96 MC/CUMM (3.8-5.5); White Blood Count 10.4 T/CUMM (4-12)
[2017-07-17 12:24] LABS: Apearance,Urine CLEAR (Clear); Bacteria,Urine Occasional /HPF (Few); Bilirubin,Urine Negative (Negative); Blood, Urine Negative (Negative); Glucose,Urine (UA) Negative (Negative); Hyaline Casts,Urine 3 /LPF (0-3); Ketones,Urine Negative (Negative); Mucus,Urine Occasional /LPF (Occasional); Nitrite,Urine Negative (Negative); Protein,Urine Negative; RBC,Urine <1 /HPF (0-4); Squamous Epithelial Cell,Urine Occasional /HPF (0-10); Urine Color Yellow (Yellow); Urine Specific Gravity 1.004 (1.001-1.035); Urine Urobilinogen < 2.0 EU/DL (0.2-1.0)
[2017-07-17 12:25] LABS: Partial Thromboplastin Time 27.4 SECS (0-40)
[2017-07-17 12:43] LABS: Albumin 2.7 G/DL (3.4-5.0); Bilirubin,Total 0.8 MG/DL (0.2-1.0); Calcium 8.2 MG/DL (8.5-10.1); Osmolality,Calculated 282.5 MOS/KG (273-304); Potassium 3.7 MMOL/L (3.5-5.1); Total Protein 6.5 G/DL (6.4-8.3); Troponin I Only 0.032 NG/ML (0.00-0.045)
[2017-07-17] MEDS ORDERED: MORPHINE 2 MG/1 ML SYRINGE IV PRN (15:46)
[2017-07-17] MEDS ORDERED: ACETAMINOPHEN 325 MG TABLET PO PRN (15:46)
[2017-07-17] MEDS ORDERED: guaiFENesin/DM ER 600-30 MG TABLET PO PRN (15:46)
[2017-07-17] MEDS ORDERED: DEXTROSE 50% 25 GM/50 ML VIAL IV PRN (15:46)
[2017-07-17] MEDS ORDERED: DOCUSATE SODIUM 100 MG CAPSULE PO PRN (15:46)
[2017-07-17] MEDS ORDERED: ONDANSETRON 4 MG/2 ML VIAL IV PRN (15:46)
[2017-07-17] MEDS ORDERED: GLUCAGON 1 MG VIAL IM PRN (15:46)
[2017-07-17] MEDS ORDERED: LEVOFLOXACIN 750 MG TABLET PO SCH (16:00)
[2017-07-17] MEDS ORDERED: traMADol 50 MG TABLET PO PRN (16:31)
[2017-07-17] MEDS ORDERED: PANTOPRAZOLE 40 MG TABLET PO ONE (16:33)
[2017-07-17] MEDS ORDERED: ENOXAPARIN 40 MG/0.4 ML SYRINGE ONE (16:33)
[2017-07-17] MEDS: PANTOPRAZOLE 40 MG TABLET PO SCH (16:36)
[2017-07-17] MEDS: CLOPIDOGREL 75 MG TABLET PO SCH (16:36)
[2017-07-17] MEDS: ENOXAPARIN 40 MG/0.4 ML SYRINGE SUBCUT SCH (16:37)
[2017-07-17] MEDS: FUROSEMIDE 40 MG/4 ML VIAL IV SCH ×2 (16:40→23:24)
[2017-07-17] MEDS: ASPIRIN EC 81 MG TABLET PO SCH (17:42)
[2017-07-17] MEDS: INSULIN LISPRO 100 UNIT/ML SUBCUT SCH ×2 (17:42→17:43)
[2017-07-17] MEDS: MULTIVITAMIN (CENTRUM) TABLET PO SCH (17:42)
[2017-07-17] MEDS: GLIMEPIRIDE 4 MG TABLET PO SCH (21:57)
[2017-07-17] MEDS: CARVEDILOL 3.125 MG TABLET PO SCH (21:57)
[2017-07-17] MEDS: DILTIAZEM CD 120 MG CAPSULE PO SCH (21:57)
[2017-07-17] MEDS: GABAPENTIN 600 MG TABLET PO SCH (21:57)
[2017-07-17] MEDS: INSULIN GLARGINE 100 UNIT/ML SUBCUT SCH (21:57)
[2017-07-17] MEDS: ATORVASTATIN 40 MG TABLET PO SCH (21:57)
[2017-07-18 08:42] LABS: Basophils # 0.1 10*3/uL (0.0-0.2); Basophils % 0.5 % (0.0-0.8); Eosinophils # 0.8 10*3/uL (0.0-0.87); Eosinophils % 7.1 % (0.00-10.9); Hematocrit 29.4 VOL% (35.7-47.0); Hemoglobin 9.3 GM/DL (12.0-16.0); Immature Granulocytes % 0.6 %; Immature Granulocytes Absolute 0.06 #; Lymphocytes # 1.6 10*3/uL (1.4-4.0); Lymphocytes % 14.9 % (21.3-54.2); Mean Corpuscular HGB Conc 31.6 GM/DL (32-36); Mean Corpuscular Hemoglobin 30 PG (27-34); Mean Corpuscular Volume 95.1 FL (87-102); Mean Platelet Volume 9.4 FL (9.6-12.0); Monocytes # 0.7 10*3/uL (0.11-0.8); Monocytes % 6.3 % (1.7-12.7); NRBC # 0.02 10*3/uL; Neutrophils # 7.5 10*3/uL (1.4-7.4); Neutrophils % 70.6 % (38.7-73.9); Platelet Count 311 T/CUMM (130-400); Red Blood Count 3.09 MC/CUMM (3.8-5.5); White Blood Count 10.7 T/CUMM (4-12)
[2017-07-18] MEDS: PANTOPRAZOLE 40 MG TABLET PO SCH (09:00)
[2017-07-18] MEDS: CLOPIDOGREL 75 MG TABLET PO SCH (09:00)
[2017-07-18] MEDS: FUROSEMIDE 40 MG/4 ML VIAL IV SCH ×2 (09:00→16:17)
[2017-07-18] MEDS: ASPIRIN EC 81 MG TABLET PO SCH (09:00)
[2017-07-18] MEDS: MULTIVITAMIN (CENTRUM) TABLET PO SCH (09:00)
[2017-07-18] MEDS: GLIMEPIRIDE 4 MG TABLET PO SCH ×2 (09:00→21:52)
[2017-07-18] MEDS: GABAPENTIN 600 MG TABLET PO SCH ×3 (09:00→21:52)
[2017-07-18] MEDS: CARVEDILOL 3.125 MG TABLET PO SCH ×2 (09:00→21:52)
[2017-07-18] MEDS: INSULIN LISPRO 100 UNIT/ML SUBCUT SCH ×5 (09:01→17:29)
[2017-07-18] MEDS: INSULIN GLARGINE 100 UNIT/ML SUBCUT SCH ×2 (09:10→23:22)
[2017-07-18 09:19] LABS: Albumin 2.7 G/DL (3.4-5.0); Bilirubin,Total 1.2 MG/DL (0.2-1.0); Calcium 8.4 MG/DL (8.5-10.1); Osmolality,Calculated 280.1 MOS/KG (273-304); Potassium 4.2 MMOL/L (3.5-5.1); Total Protein 6.3 G/DL (6.4-8.3)
[2017-07-18] MEDS: ENOXAPARIN 40 MG/0.4 ML SYRINGE SUBCUT SCH (16:16)
[2017-07-18] MEDS: DILTIAZEM CD 120 MG CAPSULE PO SCH (21:52)
[2017-07-18] MEDS: ATORVASTATIN 40 MG TABLET PO SCH (21:52)
[2017-07-19] MEDS: FUROSEMIDE 40 MG/4 ML VIAL IV SCH (01:39)
[2017-07-19 05:46] LABS: Calcium 8.2 MG/DL (8.5-10.1); Osmolality,Calculated 279.4 MOS/KG (273-304)
[2017-07-19 08:07] VITALS: BP 93/52
[2017-07-19] MEDS: INSULIN LISPRO 100 UNIT/ML SUBCUT SCH ×2 (08:40→09:43)
[2017-07-19] MEDS: GABAPENTIN 600 MG TABLET PO SCH (09:42)
[2017-07-19] MEDS: CARVEDILOL 3.125 MG TABLET PO SCH (09:42)
[2017-07-19] MEDS: CLOPIDOGREL 75 MG TABLET PO SCH (09:42)
[2017-07-19] MEDS: ASPIRIN EC 81 MG TABLET PO SCH (09:42)
[2017-07-19] MEDS: GLIMEPIRIDE 4 MG TABLET PO SCH (09:42)
[2017-07-19] MEDS: MULTIVITAMIN (CENTRUM) TABLET PO SCH (09:42)
[2017-07-19] MEDS: PANTOPRAZOLE 40 MG TABLET PO SCH (09:42)
[2017-07-19] MEDS: INSULIN GLARGINE 100 UNIT/ML SUBCUT SCH (09:43)
== END 2017-07-19 12:10 | disposition home or self-care (01) ==
LOC: EDUNIT# → N.EDINP 11:36 → N.ED 11:36 → N.TELES 16:54
PROVIDERS: ADMIT Family Medicine; ATTEND Family Medicine

== ENCOUNTER 2017-10-08 08:59 | Observation (INO) ==
[2017-10-08] MEDS ORDERED: SODIUM CHLORIDE 0.9% 500 ML IV STA (09:10)
[2017-10-08] MEDS ORDERED: ASPIRIN 325 MG TABLET PO STA (09:10)
[2017-10-08] MEDS ORDERED: MORPHINE 4 MG/1 ML VIAL IV STA ×2 (09:10→10:31)
[2017-10-08] MEDS ORDERED: ENOXAPARIN 100 MG/ML SYRINGE SUBCUT STA (09:10)
[2017-10-08 09:25] LABS: Basophils % 0.4 % (0.0-0.8); Eosinophils # 0.3 10*3/uL (0.0-0.87); Eosinophils % 3.9 % (0.00-10.9); Hematocrit 33.9 VOL% (35.7-47.0); Hemoglobin 11.1 GM/DL (12.0-16.0); Immature Granulocytes % 0.4 %; Immature Granulocytes Absolute 0.03 #; Lymphocytes # 2.5 10*3/uL (1.4-4.0); Lymphocytes % 29.3 % (21.3-54.2); Mean Corpuscular HGB Conc 32.7 GM/DL (32-36); Mean Corpuscular Hemoglobin 29 PG (27-34); Mean Corpuscular Volume 87.8 FL (87-102); Mean Platelet Volume 10.2 FL (9.6-12.0); Monocytes # 0.6 10*3/uL (0.11-0.8); Monocytes % 6.5 % (1.7-12.7); Neutrophils # 5.1 10*3/uL (1.4-7.4); Neutrophils % 59.5 % (38.7-73.9); Platelet Count 220 T/CUMM (130-400); Red Blood Count 3.86 MC/CUMM (3.8-5.5); Red Cell Distribution Width 14.8 % (9.3-17.3); White Blood Count 8.6 T/CUMM (4-12)
[2017-10-08 09:38] LABS: INR 0.9; Partial Thromboplastin Time 25.9 SECS (0-40)
[2017-10-08 09:52] LABS: Alanine Aminotransferase 23 U/L (13-56); Albumin 3.3 G/DL (3.4-5.0); Alkaline Phosphatase 138 U/L (45-117); Aspartate Amino Transferase 21 U/L (0-37); Bilirubin,Total < 0.39 MG/DL (0.2-1.0); Blood Urea Nitrogen 16 MG/DL (7-18); Calcium 8.5 MG/DL (8.5-10.1); Glucose 63 MG/DL (74-106); Potassium 3.8 MMOL/L (3.5-5.1); Sodium 143 MMOL/L (136-145)
[2017-10-08] MEDS: MORPHINE 4 MG/1 ML VIAL IV PRN ×3 (11:00→13:06)
[2017-10-08] MEDS ORDERED: ACETAMINOPHEN 325 MG TABLET PO PRN (11:30)
[2017-10-08] MEDS ORDERED: ONDANSETRON 4 MG/2 ML VIAL IV PRN (11:30)
[2017-10-08] MEDS ORDERED: traMADol 50 MG TABLET PO PRN (12:05)
[2017-10-08] MEDS ORDERED: GLUCAGON 1 MG VIAL IM PRN (12:07)
[2017-10-08] MEDS ORDERED: DEXTROSE 50% 25 GM/50 ML VIAL IV PRN (12:07)
[2017-10-08] MEDS: GABAPENTIN 600 MG TABLET PO SCH ×2 (14:23→20:48)
[2017-10-08] MEDS ORDERED: KETOROLAC 30 MG/1 ML VIAL IV ONE (15:26)
[2017-10-08] MEDS ORDERED: FUROSEMIDE 40 MG TABLET PO SCH (16:00)
[2017-10-08] MEDS: traMADol 50 MG TABLET PO SCH ×2 (16:00→20:48)
[2017-10-08] MEDS: ACETAMINOPHEN 500 MG TABLET PO SCH ×2 (16:11→20:48)
[2017-10-08] MEDS: INSULIN LISPRO 100 UNIT/ML SUBCUT SCH (16:12)
[2017-10-08] MEDS: FUROSEMIDE 40 MG/4 ML VIAL IV SCH (16:22)
[2017-10-08] MEDS: GLIMEPIRIDE 4 MG TABLET PO SCH (20:48)
[2017-10-08] MEDS: CARVEDILOL 3.125 MG TABLET PO SCH (20:48)
[2017-10-08] MEDS: DOCUSATE SODIUM 100 MG CAPSULE PO SCH (20:48)
[2017-10-08] MEDS ORDERED: ATORVASTATIN 40 MG TABLET PO SCH (21:00)
[2017-10-08] MEDS ORDERED: INSULIN GLARGINE 100 UNIT/ML SUBCUT SCH (21:00)
[2017-10-08] MEDS ORDERED: DILTIAZEM CD 120 MG CAPSULE PO SCH (21:00)
[2017-10-09 06:07] LABS: Basophils % 0.5 % (0.0-0.8); Eosinophils # 0.3 10*3/uL (0.0-0.87); Eosinophils % 3.9 % (0.00-10.9); Hematocrit 34.5 VOL% (35.7-47.0); Hemoglobin 10.5 GM/DL (12.0-16.0); Immature Granulocytes % 0.4 %; Immature Granulocytes Absolute 0.03 #; Lymphocytes # 2.4 10*3/uL (1.4-4.0); Lymphocytes % 28.6 % (21.3-54.2); Mean Corpuscular HGB Conc 30.4 GM/DL (32-36); Mean Corpuscular Hemoglobin 28 PG (27-34); Monocytes # 0.6 10*3/uL (0.11-0.8); Monocytes % 6.9 % (1.7-12.7); Neutrophils # 4.9 10*3/uL (1.4-7.4); Neutrophils % 59.7 % (38.7-73.9); Platelet Count 200 T/CUMM (130-400); Red Blood Count 3.79 MC/CUMM (3.8-5.5); Red Cell Distribution Width 14.6 % (9.3-17.3); White Blood Count 8.2 T/CUMM (4-12)
[2017-10-09 06:32] LABS: Calcium 7.9 MG/DL (8.5-10.1); Osmolality,Calculated 283.4 MOS/KG (273-304); Potassium 4.1 MMOL/L (3.5-5.1)
[2017-10-09] MEDS: GLIMEPIRIDE 4 MG TABLET PO SCH (08:12)
[2017-10-09] MEDS: DOCUSATE SODIUM 100 MG CAPSULE PO SCH (08:12)
[2017-10-09] MEDS: INSULIN LISPRO 100 UNIT/ML SUBCUT SCH ×2 (08:13→12:24)
[2017-10-09] MEDS: GABAPENTIN 600 MG TABLET PO SCH (08:14)
[2017-10-09] MEDS: CARVEDILOL 3.125 MG TABLET PO SCH (08:14)
[2017-10-09] MEDS: FUROSEMIDE 40 MG/4 ML VIAL IV SCH (08:14)
[2017-10-09] MEDS: traMADol 50 MG TABLET PO SCH (08:14)
[2017-10-09] MEDS ORDERED: INSULIN GLARGINE 100 UNIT/ML SUBCUT SCH (09:00)
[2017-10-09] MEDS ORDERED: MULTIVITAMIN (CENTRUM) TABLET PO SCH (09:00)
[2017-10-09] MEDS ORDERED: LISINOPRIL 2.5 MG TABLET PO SCH (09:00)
[2017-10-09] MEDS ORDERED: CLOPIDOGREL 75 MG TABLET PO SCH (09:00)
[2017-10-09] MEDS ORDERED: ENOXAPARIN 40 MG/0.4 ML SYRINGE SUBCUT SCH (09:00)
[2017-10-09] MEDS ORDERED: ASPIRIN EC 81 MG TABLET PO SCH (09:00)
[2017-10-09] MEDS ORDERED: PANTOPRAZOLE 40 MG TABLET PO SCH (09:00)
[2017-10-09] MEDS ORDERED: POTASSIUM CHLORIDE 20 MEQ TABLET PO SCH (09:00)
[2017-10-09] MEDS: ACETAMINOPHEN 500 MG TABLET PO SCH (09:42)
[2017-10-09 12:07] VITALS: BP 123/81
== END 2017-10-09 14:55 | disposition home or self-care (01) ==
LOC: EDUNIT# → N.ED 08:59 → N.EDINP 08:59 → N.TELEN 13:21
PROVIDERS: ADMIT Family Medicine; ATTEND Family Medicine

== ENCOUNTER 2018-07-03 14:21 | Observation (INO) ==
[2018-07-03] MEDS ORDERED: ASPIRIN 325 MG TABLET PO STA (14:54)
[2018-07-03 15:27] LABS: Basophils # 0.1 10*3/uL (0.0-0.2); Basophils % 0.5 % (0.0-0.8); Eosinophils # 0.1 10*3/uL (0.0-0.87); Eosinophils % 0.7 % (0.00-10.9); Hematocrit 39.1 VOL% (35.7-47.0); Hemoglobin 12.9 GM/DL (12.0-16.0); Immature Granulocytes % 0.6 %; Immature Granulocytes Absolute 0.06 #; Lymphocytes # 1.1 10*3/uL (1.4-4.0); Lymphocytes % 11.2 % (21.3-54.2); Mean Corpuscular Hemoglobin 30 PG (27-34); Mean Corpuscular Volume 90.3 FL (87-102); Mean Platelet Volume 10.1 FL (9.6-12.0); Monocytes # 0.5 10*3/uL (0.11-0.8); Monocytes % 5.3 % (1.7-12.7); Neutrophils # 8.4 10*3/uL (1.4-7.4); Neutrophils % 81.7 % (38.7-73.9); Platelet Count 240 T/CUMM (130-400); Red Blood Count 4.33 MC/CUMM (3.8-5.5); Red Cell Distribution Width 13.2 % (9.3-17.3); White Blood Count 10.2 T/CUMM (4-12)
[2018-07-03 15:36] LABS: INR 0.9; PT Patient Result 10.2 SECS; Partial Thromboplastin Time 25.8 SECS (0-40)
[2018-07-03 15:50] LABS: Calcium 8.5 MG/DL (8.5-10.1); Osmolality,Calculated 278.5 MOS/KG (273-304); Potassium 4.2 MMOL/L (3.5-5.1); Total Protein 7.5 G/DL (6.4-8.3)
[2018-07-03] MEDS ORDERED: ONDANSETRON 4 MG/2 ML VIAL IV PRN (17:28)
[2018-07-03] MEDS ORDERED: DEXTROSE 50% 25 GM/50 ML SYRINGE IV PRN (17:28)
[2018-07-03] MEDS ORDERED: guaiFENesin/DM ER 600-30 MG TABLET PO PRN (17:28)
[2018-07-03] MEDS ORDERED: MORPHINE 4 MG/1 ML VIAL IV PRN (17:28)
[2018-07-03] MEDS ORDERED: GLUCAGON 1 MG VIAL IM PRN (17:28)
[2018-07-03 18:06] LABS: Apearance,Urine CLEAR (Clear); Bilirubin,Urine Negative (Negative); Blood, Urine Small mg/dL (Negative); Glucose,Urine (UA) >=500 mg/dL (Negative); Ketones,Urine Negative (Negative); Nitrite,Urine Negative (Negative); Protein,Urine 100 MG/DL; RBC,Urine 4 /HPF (0-4); Squamous Epithelial Cell,Urine Occasional /HPF (0-10); Urine Color Yellow (Yellow); Urine Specific Gravity 1.055 (1.001-1.035); WBC,Urine 1 /HPF (0-6)
[2018-07-03 18:10] LABS: Barbiturates Screen,Urine Negative (Negative); Benzodiazepines Screen,Urine Negative (Negative); Cannabinoid Screen,Urine Negative (Negative); Opiate Screen,Urine Positive (Negative); Phencyclidine Screen,Urine Negative (Negative)
[2018-07-03] MEDS ORDERED: diphenhydrAMINE 50 MG/1 ML VIAL IV PRN (19:46)
[2018-07-03] MEDS ORDERED: SODIUM CHLORIDE 0.9% 250 ML IV ONE (19:46)
[2018-07-03] MEDS: CARVEDILOL 12.5 MG TABLET PO SCH (20:58)
[2018-07-03] MEDS: amLODIPine 5 MG TABLET PO SCH (20:58)
[2018-07-03] MEDS: MAGNESIUM CHLORIDE 64 MG TABLET PO SCH (20:58)
[2018-07-03] MEDS: DILTIAZEM CD 120 MG CAPSULE PO SCH (20:58)
[2018-07-03] MEDS: GABAPENTIN 600 MG TABLET PO SCH (20:58)
[2018-07-03] MEDS: AMITRIPTYLINE 25 MG TABLET PO SCH (20:59)
[2018-07-03] MEDS: GLIMEPIRIDE 4 MG TABLET PO SCH (20:59)
[2018-07-03] MEDS: ATORVASTATIN 40 MG TABLET PO SCH (20:59)
[2018-07-03] MEDS ORDERED: INSULIN GLARGINE 100 UNIT/ML SUBCUT SCH (21:00)
[2018-07-03] MEDS: hydrALAZINE 25 MG TABLET PO SCH (21:02)
[2018-07-03] MEDS: methylPREDNISolone SOD SUC 40 MG/1 ML VIAL IV SCH (21:05)
[2018-07-03] MEDS: FAMOTIDINE 20 MG/2 ML VIAL IV SCH (21:07)
[2018-07-03] MEDS: INSULIN REGULAR 100 UNIT/ML SUBCUT SCH (21:09)
[2018-07-03] MEDS: ENOXAPARIN 40 MG/0.4 ML SYRINGE SUBCUT SCH (21:11)
[2018-07-03] MEDS: INSULIN LISPRO 100 UNIT/ML SUBCUT SCH (21:13)
[2018-07-04 06:01] LABS: Basophils % 0.3 % (0.0-0.8); Hematocrit 37.8 VOL% (35.7-47.0); Hemoglobin 12.1 GM/DL (12.0-16.0); Immature Granulocytes % 0.4 %; Immature Granulocytes Absolute 0.04 #; Lymphocytes # 0.8 10*3/uL (1.4-4.0); Lymphocytes % 8.2 % (21.3-54.2); Mean Corpuscular Hemoglobin 30 PG (27-34); Mean Corpuscular Volume 92.6 FL (87-102); Mean Platelet Volume 10.5 FL (9.6-12.0); Monocytes # 0.1 10*3/uL (0.11-0.8); Monocytes % 1.4 % (1.7-12.7); Neutrophils # 8.9 10*3/uL (1.4-7.4); Neutrophils % 89.7 % (38.7-73.9); Platelet Count 246 T/CUMM (130-400); Red Blood Count 4.08 MC/CUMM (3.8-5.5); Red Cell Distribution Width 13.2 % (9.3-17.3)
[2018-07-04 06:22] LABS: Calcium 8.7 MG/DL (8.5-10.1); Osmolality,Calculated 277.9 MOS/KG (273-304); Potassium 5.3 MMOL/L (3.5-5.1); Risk Ratio 3.91; VLDL CHOLESTEROL 26.2 MG/DL
[2018-07-04] MEDS ORDERED: MELOXICAM 7.5 MG TABLET PO SCH (09:00)
[2018-07-04] MEDS ORDERED: PANTOPRAZOLE 40 MG TABLET PO SCH (09:00)
[2018-07-04] MEDS: FAMOTIDINE 20 MG/2 ML VIAL IV SCH ×2 (09:15→20:28)
[2018-07-04] MEDS: methylPREDNISolone SOD SUC 40 MG/1 ML VIAL IV SCH (09:17)
[2018-07-04] MEDS: INSULIN REGULAR 100 UNIT/ML SUBCUT SCH ×4 (09:28→20:23)
[2018-07-04] MEDS: INSULIN LISPRO 100 UNIT/ML SUBCUT SCH ×5 (10:09→17:41)
[2018-07-04] MEDS: GABAPENTIN 600 MG TABLET PO SCH ×3 (10:10→20:21)
[2018-07-04] MEDS ORDERED: KETOROLAC 30 MG/1 ML VIAL IV ONE (11:38)
[2018-07-04] MEDS ORDERED: MAGNESIUM SULF RIDER 2 GM in PREMIX 1 EACH IV ONE (11:38)
[2018-07-04] MEDS: MAGNESIUM CHLORIDE 64 MG TABLET PO SCH ×2 (12:46→20:20)
[2018-07-04] MEDS: CHOLECALCIFEROL 5,000 UNIT TABLET PO SCH (12:46)
[2018-07-04] MEDS: metOLazone 2.5 MG TABLET PO SCH (12:46)
[2018-07-04] MEDS: GLIMEPIRIDE 4 MG TABLET PO SCH ×2 (12:46→20:21)
[2018-07-04] MEDS: MULTIVITAMIN (CENTRUM) TABLET PO SCH (12:47)
[2018-07-04] MEDS: hydrALAZINE 25 MG TABLET PO SCH ×3 (12:47→20:21)
[2018-07-04] MEDS: ESCITALOPRAM 10 MG TABLET PO SCH (12:47)
[2018-07-04] MEDS: amLODIPine 5 MG TABLET PO SCH ×2 (12:47→20:21)
[2018-07-04] MEDS: CLOPIDOGREL 75 MG TABLET PO SCH (12:47)
[2018-07-04] MEDS: SPIRONOLACTONE 25 MG TABLET PO SCH (12:47)
[2018-07-04] MEDS: ASPIRIN EC 81 MG TABLET PO SCH (12:47)
[2018-07-04] MEDS: ASCORBIC ACID 500 MG TABLET PO SCH (12:48)
[2018-07-04] MEDS: CARVEDILOL 12.5 MG TABLET PO SCH ×2 (12:48→20:21)
[2018-07-04] MEDS: INSULIN GLARGINE 100 UNIT/ML SUBCUT SCH (12:54)
[2018-07-04] MEDS ORDERED: DEXTROSE 50% 25 GM/50 ML VIAL IV PRN (13:08)
[2018-07-04] MEDS ORDERED: GLUCAGON 1 MG VIAL IM PRN (13:08)
[2018-07-04] MEDS: POTASSIUM CHLORIDE 20 MEQ TABLET PO SCH (13:09)
[2018-07-04] MEDS ORDERED: IBUPROFEN 800 MG TABLET PO SCH (15:00)
[2018-07-04] MEDS: SODIUM CHLORIDE 0.9% 1,000 ML IV SCH ×4 (15:55→17:14)
[2018-07-04] MEDS ORDERED: INSULIN GLARGINE 100 UNIT/ML SUBCUT SCH (16:09)
[2018-07-04] MEDS ORDERED: INSULIN REGULAR 100 UNIT/ML SUBCUT ONE (17:19)
[2018-07-04] MEDS: ATORVASTATIN 40 MG TABLET PO SCH (20:21)
[2018-07-04] MEDS: AMITRIPTYLINE 25 MG TABLET PO SCH (20:21)
[2018-07-04] MEDS: DILTIAZEM CD 120 MG CAPSULE PO SCH (20:21)
[2018-07-04] MEDS: ENOXAPARIN 40 MG/0.4 ML SYRINGE SUBCUT SCH (20:25)
[2018-07-05] MEDS: INSULIN REGULAR 100 UNIT/ML SUBCUT SCH ×4 (00:01→17:49)
[2018-07-05] MEDS: SODIUM CHLORIDE 0.9% 1,000 ML IV SCH ×2 (00:04→11:08)
[2018-07-05 04:58] LABS: Calcium 8.6 MG/DL (8.5-10.1); Osmolality,Calculated 284.2 MOS/KG (273-304); Potassium 4.3 MMOL/L (3.5-5.1)
[2018-07-05] MEDS ORDERED: SODIUM CHLORIDE 0.9% 1,000 ML IV ONE (07:23)
[2018-07-05] MEDS ORDERED: predniSONE 20 MG TABLET PO SCH (09:00)
[2018-07-05] MEDS: FAMOTIDINE 20 MG/2 ML VIAL IV SCH ×2 (10:53→11:11)
[2018-07-05] MEDS: CLOPIDOGREL 75 MG TABLET PO SCH (10:54)
[2018-07-05] MEDS: GABAPENTIN 600 MG TABLET PO SCH ×2 (10:55→17:50)
[2018-07-05] MEDS: MAGNESIUM CHLORIDE 64 MG TABLET PO SCH (10:55)
[2018-07-05] MEDS: ESCITALOPRAM 10 MG TABLET PO SCH (10:55)
[2018-07-05] MEDS: CHOLECALCIFEROL 5,000 UNIT TABLET PO SCH (10:56)
[2018-07-05] MEDS: amLODIPine 5 MG TABLET PO SCH (10:56)
[2018-07-05] MEDS: metOLazone 2.5 MG TABLET PO SCH (10:56)
[2018-07-05] MEDS: MULTIVITAMIN (CENTRUM) TABLET PO SCH (10:56)
[2018-07-05] MEDS: CARVEDILOL 12.5 MG TABLET PO SCH (10:56)
[2018-07-05] MEDS: ASCORBIC ACID 500 MG TABLET PO SCH (10:56)
[2018-07-05] MEDS: ASPIRIN EC 81 MG TABLET PO SCH (10:56)
[2018-07-05] MEDS: GLIMEPIRIDE 4 MG TABLET PO SCH (10:56)
[2018-07-05] MEDS: INSULIN LISPRO 100 UNIT/ML SUBCUT SCH ×2 (10:57→17:48)
[2018-07-05] MEDS: hydrALAZINE 25 MG TABLET PO SCH ×2 (10:57→17:49)
[2018-07-05] MEDS: POTASSIUM CHLORIDE 20 MEQ TABLET PO SCH (10:57)
[2018-07-05] MEDS: INSULIN GLARGINE 100 UNIT/ML SUBCUT SCH (10:59)
[2018-07-05 12:03] VITALS: BP 112/63
[2018-07-05] MEDS: SPIRONOLACTONE 25 MG TABLET PO SCH (17:48)
== END 2018-07-05 16:00 | disposition home or self-care (01) ==
LOC: EDUNIT# → EDBD → N.EDINP 14:21 → N.ED 14:21 → SUATTDRO 16:20 → N.EDINP 18:08 → N.4E 18:18
PROVIDERS: ADMIT Emergency Medicine; ATTEND Internal Medicine

== ENCOUNTER 2019-01-02 21:04 | Observation (INO) ==
[2019-01-03] MEDS ORDERED: DEXTROSE 50% 25 GM/50 ML VIAL IV PRN ×3 (01:27→11:52)
[2019-01-03] MEDS ORDERED: MORPHINE 4 MG/1 ML VIAL IV PRN (01:27)
[2019-01-03] MEDS ORDERED: ONDANSETRON 4 MG/2 ML VIAL IV PRN (01:27)
[2019-01-03] MEDS ORDERED: GLUCAGON 1 MG VIAL IM PRN ×2 (01:27→01:37)
[2019-01-03] MEDS ORDERED: SODIUM CHLORIDE 0.9% 1,000 ML IV SCH (01:30)
[2019-01-03] MEDS ORDERED: KETOROLAC 30 MG/1 ML VIAL IV ONE ×2 (01:31→11:48)
[2019-01-03] MEDS ORDERED: ACETAMINOPHEN 500 MG TABLET PO PRN (01:32)
[2019-01-03 02:31] LABS: Basophils % 0.5 % (0.0-0.8); Eosinophils # 0.3 10*3/uL (0.0-0.87); Eosinophils % 3.8 % (0.00-10.9); Hematocrit 36.3 VOL% (35.7-47.0); Hemoglobin 11.5 GM/DL (12.0-16.0); Immature Granulocytes % 0.3 %; Immature Granulocytes Absolute 0.03 #; Lymphocytes # 3.8 10*3/uL (1.4-4.0); Lymphocytes % 43.7 % (21.3-54.2); Mean Corpuscular HGB Conc 31.7 GM/DL (32-36); Mean Corpuscular Volume 93.6 FL (87-102); Mean Platelet Volume 10.6 FL (9.6-12.0); Monocytes % 6.7 % (1.7-12.7); Platelet Count 194 T/CUMM (130-400); Red Blood Count 3.88 MC/CUMM (3.8-5.5); Red Cell Distribution Width 13.6 % (9.3-17.3); White Blood Count 8.8 T/CUMM (4-12)
[2019-01-03 02:58] LABS: Albumin 3.1 G/DL (3.4-5.0); Bilirubin,Total 0.5 MG/DL (0.2-1.0); Calcium 8.6 MG/DL (8.5-10.1); Osmolality,Calculated 285.1 MOS/KG (273-304); Total Protein 6.8 G/DL (6.4-8.3)
[2019-01-03 03:18] LABS: Calcium 8.3 MG/DL (8.5-10.1); Risk Ratio 3.91; Thyroid Stimulating Hormone 1.72 uIU/ml (0.358-3.74); VLDL CHOLESTEROL 41.4 MG/DL
[2019-01-03] MEDS ORDERED: ASPIRIN EC 81 MG TABLET PO SCH (09:00)
[2019-01-03] MEDS ORDERED: ENOXAPARIN 30 MG/0.3 ML SYRINGE SUBCUT SCH (09:00)
[2019-01-03] MEDS ORDERED: PANTOPRAZOLE 40 MG TABLET PO SCH (09:00)
[2019-01-03] MEDS ORDERED: CLOPIDOGREL 75 MG TABLET PO SCH (09:00)
[2019-01-03] MEDS ORDERED: LOSARTAN 25 MG TABLET PO SCH (09:00)
[2019-01-03] MEDS ORDERED: CARVEDILOL 12.5 MG TABLET PO SCH (09:00)
[2019-01-03] MEDS ORDERED: ISOSORBIDE MONONITRATE 30 MG TABLET PO SCH (09:00)
[2019-01-03] MEDS: INSULIN REGULAR 100 UNIT/ML SUBCUT SCH ×3 (10:28→17:23)
[2019-01-03 16:38] VITALS: BP 142/81
[2019-01-03] MEDS ORDERED: INSULIN GLARGINE 100 UNIT/ML SUBCUT SCH (21:00)
[2019-01-03] MEDS ORDERED: ATORVASTATIN 40 MG TABLET PO SCH (21:00)
== END 2019-01-03 18:29 | disposition home or self-care (01) ==
LOC: N.TELEN
PROVIDERS: ADMIT Internal Medicine; ATTEND Family Medicine

== ENCOUNTER 2019-02-13 19:58 | Observation (INO) ==
[2019-02-13] MEDS ORDERED: diphenhydrAMINE CAP 25 MG CAPSULE PO PRN (21:10)
[2019-02-13] MEDS ORDERED: NICOTINE 21 MG/24 HR PATCH TRANSDERM PRN (21:10)
[2019-02-13] MEDS ORDERED: ACETAMINOPHEN 325 MG TABLET PO PRN (21:10)
[2019-02-13] MEDS ORDERED: MORPHINE 4 MG/1 ML VIAL IV PRN (21:10)
[2019-02-13] MEDS ORDERED: ONDANSETRON 4 MG/2 ML VIAL IV PRN (21:10)
[2019-02-13] MEDS ORDERED: guaiFENesin/DM ER 600-30 MG TABLET PO PRN (21:10)
[2019-02-13] MEDS ORDERED: BISACODYL 5 MG TABLET PO PRN (21:10)
[2019-02-13 21:38] LABS: Risk Ratio 4.71; Thyroid Stimulating Hormone 1.99 uIU/ml (0.358-3.74); VLDL CHOLESTEROL 51.4 MG/DL
[2019-02-13] MEDS ORDERED: CYCLOBENZAPRINE 10 MG TABLET PO PRN (23:34)
[2019-02-14] MEDS ORDERED: INFLUENZA VIRUS VACCINE 0.5 ML SYRINGE IM ONE (01:47)
[2019-02-14] MEDS ORDERED: ALBUTEROL 0.63 MG/3 ML NEB RESP TX PRN (02:22)
[2019-02-14 03:21] LABS: Albumin 2.9 G/DL (3.4-5.0); Bilirubin,Total 0.4 MG/DL (0.2-1.0); Calcium 8.6 MG/DL (8.5-10.1); Osmolality,Calculated 299.4 MOS/KG (273-304); Total Protein 6.4 G/DL (6.4-8.3)
[2019-02-14] MEDS ORDERED: carvediloL 12.5 MG TABLET PO SCH (08:00)
[2019-02-14] MEDS ORDERED: HEPARIN/NACL 0.9% 2 UNITS/ML 1,000 ML IV ONE (08:11)
[2019-02-14] MEDS ORDERED: LIDOCAINE 1% 20 ML VIAL ONE (08:11)
[2019-02-14] MEDS ORDERED: amLODIPine 5 MG TABLET PO SCH (09:00)
[2019-02-14] MEDS ORDERED: INSULIN GLARGINE 100 UNIT/ML SUBCUT SCH (09:00)
[2019-02-14] MEDS ORDERED: ISOSORBIDE MONONITRATE 30 MG TABLET PO SCH (09:00)
[2019-02-14] MEDS ORDERED: MAGNESIUM CHLORIDE 64 MG TABLET PO SCH (09:00)
[2019-02-14] MEDS ORDERED: SPIRONOLACTONE 25 MG TABLET PO SCH (09:00)
[2019-02-14] MEDS ORDERED: CLOPIDOGREL 75 MG TABLET PO SCH (09:00)
[2019-02-14] MEDS ORDERED: metOLazone 2.5 MG TABLET PO SCH (09:00)
[2019-02-14] MEDS ORDERED: GABAPENTIN 600 MG TABLET PO SCH (09:00)
[2019-02-14] MEDS ORDERED: POTASSIUM CHLORIDE 20 MEQ TABLET PO SCH (09:00)
[2019-02-14] MEDS ORDERED: PANTOPRAZOLE 40 MG TABLET PO SCH (09:00)
[2019-02-14] MEDS ORDERED: ASPIRIN EC 81 MG TABLET PO SCH (09:00)
[2019-02-14] MEDS ORDERED: DIAZEPAM 5 MG TABLET PO ONE (09:19)
[2019-02-14] MEDS ORDERED: diphenhydrAMINE CAP 25 MG CAPSULE PO ONE (09:19)
[2019-02-14] MEDS ORDERED: SODIUM CHLORIDE 0.45% 1,000 ML IV SCH (09:30)
[2019-02-14] MEDS ORDERED: MIDAZOLAM 2 MG/2 ML VIAL ONE (10:46)
[2019-02-14] MEDS ORDERED: HYDROmorphone 2 MG/1 ML VIAL ONE (10:46)
[2019-02-14] MEDS ORDERED: NITROGLYCERIN DRIP 50 MG/250 ML BOTTLE IV ONE (10:46)
[2019-02-14] MEDS ORDERED: VERAPAMIL 5 MG/2 ML VIAL ONE (10:47)
[2019-02-14] MEDS ORDERED: DEXTROSE 50% 25 GM/50 ML VIAL IV PRN (11:48)
[2019-02-14] MEDS ORDERED: GLUCAGON 1 MG VIAL IM PRN (11:48)
[2019-02-14] MEDS ORDERED: SODIUM CHLORIDE 0.9% 500 ML IV ONE (14:16)
[2019-02-14 16:11] VITALS: BP 104/65
[2019-02-14] MEDS ORDERED: ATORVASTATIN 40 MG TABLET PO SCH (21:00)
== END 2019-02-14 17:41 | disposition home or self-care (01) ==
LOC: EDUNIT# → EDBD → EDSEX → N.EDINP 19:58 → N.ED 19:58 → N.2W 22:40
PROVIDERS: ADMIT Internal Medicine Cardiovascular Disease; ATTEND Internal Medicine Cardiovascular Disease